=== PATIENT | male | born 1970 | race Caucasian/White ===

== ENCOUNTER 2021-01-26 17:41 | Inpatient (IN) | payer OTHER ==
[2021-01-26] MEDS ORDERED: MVI, Adult with Vitamin K 10 ML, Thiamine 100 MG, Folic Acid 1 MG, Magnesium Sulfate 3 ... IV SCH ×5 (18:30)
--- NOTE | 2021-01-26 19:06 | EDM.PDOC ---
ED HPI GENERAL MEDICAL PROBLEM - General Chief Complaint: General Stated Complaint: DEHYDRATED,WEAKENSS Time Seen by Provider: 01/26/21 18:25 Source of Information: Reports: Patient, Family History Limitations: Reports: No Limitations - History of Present Illness INITIAL COMMENTS - FREE TEXT/NARRATIVE: 50-year-old male with chronic alcoholism, was hospitalized 5 years ago with pancreatitis and significantly elevated liver enzymes and bilirubin and did have 4 years of sobriety but has been drinking daily now for months. He falls a lot, is bruised all over, and is unable to sleep and feels lightheaded and dizzy with walking. He has been nauseated and vomiting quite a bit and feels "dehydrated". No fever, denies shortness of breath, no diarrhea. Denies any pain. Really his chief complaint is insomnia. Onset: Gradual Duration: Chronic Associated Symptoms: Reports: Loss of Appetite, Malaise, Nausea/Vomiting, Syncope, Weakness. Denies: Confusion, Chest Pain, Cough, Fever/Chills, Headaches, Shortness of Breath - Related Data Allergies Allergy/AdvReac Type Severity Reaction Status Date / Time No Known Allergies Allergy Verified 01/26/21 18:00 Home Meds: Home Meds Insulin Aspart [NovoLOG] 0 unit SUBCUT ASDIRECTED pen 07/14/16 [Rx] Pantoprazole [ProTONIX IV] 40 mg IV Q12H vial 07/14/16 [Rx] Insulin Degludec [Tresiba Flextouch U-100] 0 unit SUBCUT QID 01/26/21 [History] Insulin Lispro [Humalog] 01/26/21 [History] atorvaSTATin [Lipitor] 1 tab PO BEDTIME 01/26/21 [History] Past Medical History Gastrointestinal History: Reports: GERD - Past Surgical History Other Musculoskeletal Surgeries/Procedures:: knee surgery Social & Family History - Tobacco Use Tobacco Use Status *Q: Never Tobacco User - Caffeine Use Caffeine Use: Reports: None - Alcohol Use Days Per Week of Alcohol Use: 7 Number of Drinks Per Day: 10 Total Drinks Per Week: 70 - Living Situation & Occupation Living situation: Reports: Occupation: Employed ED ROS GENERAL - Review of Systems Review Of Systems: See Below Constitutional: Reports: Malaise. Denies: Fever, Chills HEENT: Reports: No Symptoms Respiratory: Denies: Shortness of Breath, Cough Cardiovascular: Reports: Lightheadedness, Syncope. Denies: Chest Pain, Palpitations GI/Abdominal: Reports: Nausea. Denies: Abdominal Pain, Vomiting : Reports: No Symptoms Musculoskeletal: Reports: No Symptoms Skin: Reports: Bruising Neurological: Reports: Dizziness, Difficulty Walking, Weakness, Other (Symptoms are much worse with standing) Psychiatric: Reports: Anxiety, Depression, Other (Insomnia) ED EXAM, GENERAL - Physical Exam Exam: See Below Exam Limited By: No Limitations General Appearance: Alert, No Apparent Distress Eye Exam: Bilateral Eye: Normal Inspection (No obvious jaundice, hydration is good) Head: Other (He does have a healing abrasion on his right eyebrow, no other evidence of trauma) Neck: Supple, Non-Tender Respiratory/Chest: No Respiratory Distress, Lungs Clear Cardiovascular: Regular Rate, Rhythm. No: Tachycardia GI/Abdominal: Soft, Non-Tender Back Exam: Other (Some bruises are present on the right flank). No: CVA Tenderness (R), CVA Tenderness (L) Extremities: No Pedal Edema, Other (Abrasions and bruising on his arms, elbows and knees from falling) Neurological: Alert, Oriented. No: Disoriented, Slow to Respond, Unresponsive Psychiatric: Flat Affect Course - Vital Signs Last Recorded V/S: Last Vital Signs Temp 98.0 F 01/26/21 18:15 Pulse 89 01/26/21 21:25 Resp 16 01/26/21 18:15 BP 115/84 01/26/21 21:25 Pulse Ox 95 01/26/21 21:25 - Orders/Labs/Meds Orders: Active Orders 24 hr Category Date Time Status Patient Status [ADT] Routine ADT 01/26/21 22:47 Active Ambulate [RC] QID Care 01/26/21 22:47 Active CIWAA Assessment [RC] Q4H Care 01/26/21 22:47 Active Cardiac Monitoring [RC] .As Directed Care 01/26/21 22:47 Active Communication Order [RC] STAT Care 01/26/21 22:47 Active Diabetes Education [RC] Click to Edit Care 01/26/21 22:47 Active Height and Weight [RC] DAILY Care 01/26/21 22:47 Active Intake and Output [RC] QSHIFT Care 01/26/21 22:47 Active Notify Provider Vital Signs [RC] ASDIRECTED Care 01/26/21 22:47 Active Notify Provider [RC] PRN Care 01/26/21 22:47 Active Notify Provider [RC] PRN Care 01/26/21 22:47 Active Orthostatic Vital Signs [RC] Q6HR Care 01/26/21 22:59 Active Oxygen Therapy [RC] PRN Care 01/26/21 22:47 Active Pulse Oximetry [RC] CONTINUOUS Care 01/26/21 22:47 Active Up With Assistance [RC] ASDIRECTED Care 01/26/21 22:47 Active Up to Chair [RC] QID Care 01/26/21 22:47 Active VTE/DVT Education [RC] Per Unit Routine Care 01/26/21 22:47 Active Regular Diet [DIET] Diet 01/26/21 Dinner Active Brain w Cont [MR] Urgent Exams 01/27/21 08:00 Ordered Echo Comp wo Cont [US] Urgent Exams 01/27/21 08:00 Ordered Head wo Cont [CT] Stat Exams 01/26/21 20:54 Taken CBC WITH AUTO DIFF [HEME] AM Lab 01/27/21 05:11 Ordered COMPREHENSIVE METABOLIC PN,CMP [CHEM] AM Lab 01/27/21 05:11 Ordered GLUCOSE POC LAB TO COLLECT JPM [POC] QIDACANDBED Lab 01/27/21 07:30 Ordered GLUCOSE POC LAB TO COLLECT JPM [POC] QIDACANDBED Lab 01/27/21 11:30 Ordered GLUCOSE POC LAB TO COLLECT JPM [POC] QIDACANDBED Lab 01/27/21 16:30 Ordered GLUCOSE POC LAB TO COLLECT JPM [POC] QIDACANDBED Lab 01/27/21 21:00 Ordered GLUCOSE POC LAB TO COLLECT JPM [POC] QIDACANDBED Lab 01/28/21 07:30 Ordered GLUCOSE POC LAB TO COLLECT JPM [POC] QIDACANDBED Lab 01/28/21 11:30 Ordered GLUCOSE POC LAB TO COLLECT JPM [POC] QIDACANDBED Lab 01/28/21 16:30 Ordered GLUCOSE POC LAB TO COLLECT JPM [POC] QIDACANDBED Lab 01/28/21 21:00 Ordered GLUCOSE POC LAB TO COLLECT JPM [POC] QIDACANDBED Lab 01/29/21 07:30 Ordered GLUCOSE POC LAB TO COLLECT JPM [POC] QIDACANDBED Lab 01/29/21 11:30 Ordered GLUCOSE POC LAB TO COLLECT JPM [POC] QIDACANDBED Lab 01/29/21 16:30 Ordered GLUCOSE POC LAB TO COLLECT JPM [POC] QIDACANDBED Lab 01/29/21 21:00 Ordered GLUCOSE POC LAB TO COLLECT JPM [POC] QIDACANDBED Lab 01/30/21 07:30 Ordered GLUCOSE POC LAB TO COLLECT JPM [POC] QIDACANDBED Lab 01/30/21 11:30 Ordered GLUCOSE POC LAB TO COLLECT JPM [POC] QIDACANDBED Lab 01/30/21 16:30 Ordered GLUCOSE POC LAB TO COLLECT JPM [POC] QIDACANDBED Lab 01/30/21 21:00 Ordered GLUCOSE POC LAB TO COLLECT JPM [POC] QIDACANDBED Lab 01/31/21 07:30 Ordered GLUCOSE POC LAB TO COLLECT JPM [POC] QIDACANDBED Lab 01/31/21 11:30 Ordered GLUCOSE POC LAB TO COLLECT JPM [POC] QIDACANDBED Lab 01/31/21 16:30 Ordered GLUCOSE POC LAB TO COLLECT JPM [POC] QIDACANDBED Lab 01/31/21 21:00 Ordered MAGNESIUM [CHEM] AM Lab 01/27/21 05:11 Ordered TSH ULTRASENSITIVE [CHEM] Timed Lab 01/27/21 05:00 Ordered Acetaminophen [TylenoL] Med 01/26/21 22:47 Active 650 mg PO Q4H PRN Dextrose 50% in Water Med 01/26/21 22:47 Active 50 ml IV ONETIME PRN Dextrose [Glutose 15] Med 01/26/21 22:47 Active 15 gm PO ONETIME PRN Folic Acid Med 01/26/21 22:47 Active 1 mg PO DAILY Gabapentin [Neurontin] Med 01/30/21 22:00 Active 200 mg PO Q8H Gabapentin [Neurontin] Med 01/26/21 22:47 Active 400 mg PO Q8H Insulin Glarg,Human.Rec.Analog [LantUS Solostar] Med 01/26/21 23:28 Active 25 units SUBCUT BEDTIME Insulin Lispro [HumaLOG] Med 01/27/21 07:00 Active See Protocol SUBCUT QIDACANDBED LORazepam [Ativan] Med 01/26/21 22:47 Active See Protocol IV ASDIRECTED LORazepam [Ativan] Med 01/26/21 22:47 Active See Protocol PO ASDIRECTED Lidocaine 1% [Xylocaine-MPF 1%] Med 01/26/21 23:12 Active 2 ml INJECT Q2H PRN Ondansetron [Zofran] Med 01/26/21 22:47 Active 4 mg IV Q4H PRN Potassium Chloride [KCL in Water 20 MEQ/100 ML] 20 meq Med 01/26/21 23:30 Active Premix Bag 1 bag IV ONETIME Potassium Chloride [KCL in Water 20 MEQ/100 ML] 20 meq Med 01/27/21 01:30 Active Premix Bag 1 bag IV ONETIME Sodium Chloride 0.9% [Normal Saline] 1,000 ml Med 01/26/21 22:47 Active IV ASDIRECTED Thiamine [Vitamin B-1] Med 01/26/21 22:47 Active 100 mg PO DAILY atorvaSTATin [Lipitor] Med 01/27/21 21:00 Active 20 mg PO BEDTIME polyethylene glycoL 3350 [MiraLAX] Med 01/26/21 22:47 Active 17 gm PO DAILY PRN Anticoagulation Contraindications VTE [AST] Routine Oth 01/26/21 22:47 Ordered Sequential Compression Device [OM.PC] Per Unit Routine Oth 01/26/21 22:47 Ordered Resuscitation Status Routine Resus Stat 01/26/21 21:59 Ordered Medication Orders Acetaminophen (Acetaminophen 325 Mg Tab) 650 mg PO Q4H PRN PRN Reason: Pain (Mild 1-3)/fever Atorvastatin Calcium (Atorvastatin 20 Mg Tab) 20 mg PO BEDTIME [facility] Dextrose (Glucose Gel 15 Gm In 37.5 Gm Tube) 15 gm PO ONETIME PRN PRN Reason: Hypoglycemia Dextrose/Water (50% Dextrose In Water 50 Ml Syringe) 50 ml IV ONETIME PRN PRN Reason: Hypoglycemia Folic Acid (Folic Acid 1 Mg Tab) 1 mg PO DAILY [facility] Gabapentin (Gabapentin 400 Mg Cap) 400 mg PO Q8H [facility] Stop: 01/30/21 22:48 Gabapentin (Gabapentin 100 Mg Cap) 200 mg PO Q8H [facility] Stop: 02/03/21 22:01 Sodium Chloride (Normal Saline) 1,000 mls @ 125 mls/hr IV ASDIRECTED [facility] Last Admin: 01/26/21 23:18 Dose: 125 mls/hr Documented by: MAIN Potassium Chloride 20 meq/ (Premix) 100 mls @ 50 mls/hr IV ONETIME ONE Stop: 01/27/21 01:29 Potassium Chloride 20 meq/ (Premix) 100 mls @ 50 mls/hr IV ONETIME ONE Stop: 01/27/21 03:29 Insulin Glargine (Insulin Glargine,Human Rec. Analog 100 Units/Ml 3 Ml Pen) 25 units SUBCUT BEDTIME [facility] Insulin Human Lispro (Insulin Lispro 100 Unit/Ml 3 Ml Kwikpen) 0 unit SUBCUT QIDACANDBED [facility]; Protocol Lidocaine HCl (Lidocaine 1% 5 Ml Sdv) 2 ml INJECT Q2H PRN PRN Reason: add to potassium Lorazepam (Lorazepam 2 Mg/Ml Sdv) 0 mg IV ASDIRECTED [facility]; Protocol Lorazepam (Lorazepam 1 Mg Tab) 0 mg PO ASDIRECTED [facility]; Protocol Ondansetron HCl (Ondansetron 4 Mg/2 Ml Sdv) 4 mg IV Q4H PRN PRN Reason: Nausea/Vomiting Polyethylene Glycol (Polyethylene Glycol 3350 Powder 17 Gm Packet) 17 gm PO DAILY PRN PRN Reason: Constipation Thiamine HCl (Thiamine 100 Mg Tab) 100 mg PO DAILY [facility] Labs: Laboratory Tests 01/26/21 01/26/21 01/26/21 Range/Units 18:41 18:41 18:41 WBC 9.9 (4.5-11.0) K/uL RBC 4.33 (4.30-5.90) M/uL Hgb 13.5 D (12.0-15.0) g/dL Hct 35.1 L (40.0-54.0) % MCV 81 (80-98) fL MCH 31 (27-31) pg MCHC 39 H (32-36) % Plt Count 151 (150-400) K/uL Neut % (Auto) 69 H (36-66) % Lymph % (Auto) 10 L (24-44) % Turner % (Auto) 21 H (2-6) % Eos % (Auto) 0 L (2-4) % Baso % (Auto) 0 (0-1) % Puncture Site ABG pH (7.350-7.450) ABG pCO2 (35.0-42.0) mmHg ABG pO2 (75.0-100.0) mmHg ABG HCO3 (22.0-26.0) mmol/L ABG Total CO2 (23.0-27.0) mmol/L ABG O2 Saturation (95.0-98.0) % ABG O2 Content (15.0-23.0) %vol ABG Base Excess mm/L ABG Hemoglobin (13.5-18.0) g/dL ABG Oxyhemoglobin % ABG Carboxyhemoglobin (0.0-1.6) % ABG Methemoglobin % Cristian Test O2 Delivery Device Sodium 113 L* (140-148) mmol/L Potassium 2.9 L* (3.6-5.2) mmol/L Chloride 61 L D (100-108) mmol/L Carbon Dioxide 30 (21-32) mmol/L Anion Gap 24.9 H (5.0-14.0) mmol/L BUN 56 H D (7-18) mg/dL Creatinine 1.6 H D (0.8-1.3) mg/dL Est Cr Clr Drug Dosing 65.65 mL/min Estimated GFR (MDRD) 46 L (>60) Glucose 532 H* (74-106) mg/dL Calcium 8.4 L (8.5-10.1) mg/dL Magnesium 2.6 H (1.8-2.4) mg/dL Total Bilirubin 1.1 H D (0.2-1.0) mg/dL AST 35 D (15-37) U/L ALT 47 (12-78) U/L Alkaline Phosphatase 79 D (46-116) U/L Total Protein 7.2 (6.4-8.2) g/dL Albumin 3.7 (3.4-5.0) g/dL Globulin 3.5 (2.3-3.5) g/dL Albumin/Globulin Ratio 1.1 L (1.2-2.2) Lipase (73-393) U/L Ethyl Alcohol < 3 mg/dL 01/26/21 01/26/21 Range/Units 18:41 21:20 WBC (4.5-11.0) K/uL RBC (4.30-5.90) M/uL Hgb (12.0-15.0) g/dL Hct (40.0-54.0) % MCV (80-98) fL MCH (27-31) pg MCHC (32-36) % Plt Count (150-400) K/uL Neut % (Auto) (36-66) % Lymph % (Auto) (24-44) % Turner % (Auto) (2-6) % Eos % (Auto) (2-4) % Baso % (Auto) (0-1) % Puncture Site Rt radial ABG pH 7.511 H (7.350-7.450) ABG pCO2 38.9 (35.0-42.0) mmHg ABG pO2 77.0 (75.0-100.0) mmHg ABG HCO3 30.9 H (22.0-26.0) mmol/L ABG Total CO2 26.9 (23.0-27.0) mmol/L ABG O2 Saturation 96.1 (95.0-98.0) % ABG O2 Content 17.6 (15.0-23.0) %vol ABG Base Excess 7.6 mm/L ABG Hemoglobin 13.3 L (13.5-18.0) g/dL ABG Oxyhemoglobin 93.5 % ABG Carboxyhemoglobin 1.6 (0.0-1.6) % ABG Methemoglobin 1.1 % Cristian Test Passed O2 Delivery Device Room air Sodium (140-148) mmol/L Potassium (3.6-5.2) mmol/L Chloride (100-108) mmol/L Carbon Dioxide (21-32) mmol/L Anion Gap (5.0-14.0) mmol/L BUN (7-18) mg/dL Creatinine (0.8-1.3) mg/dL Est Cr Clr Drug Dosing mL/min Estimated GFR (MDRD) (>60) Glucose (74-106) mg/dL Calcium (8.5-10.1) mg/dL Magnesium (1.8-2.4) mg/dL Total Bilirubin (0.2-1.0) mg/dL AST (15-37) U/L ALT (12-78) U/L Alkaline Phosphatase (46-116) U/L Total Protein (6.4-8.2) g/dL Albumin (3.4-5.0) g/dL Globulin (2.3-3.5) g/dL Albumin/Globulin Ratio (1.2-2.2) Lipase 320 (73-393) U/L Ethyl Alcohol mg/dL Meds: Medications Generic Name Dose Route Start Last Admin Trade Name Freq PRN Reason Stop Dose Admin Acetaminophen 650 mg 01/26/21 22:47 Acetaminophen 325 Mg Tab PO Q4H PRN Pain (Mild 1-3)/fever Atorvastatin Calcium 20 mg 01/27/21 21:00 Atorvastatin 20 Mg Tab PO BEDTIME [facility] Dextrose 15 gm 01/26/21 22:47 Glucose Gel 15 Gm In 37.5 Gm Tube PO ONETIME PRN Hypoglycemia Dextrose/Water 50 ml 01/26/21 22:47 50% Dextrose In Water 50 Ml Syringe IV ONETIME PRN Hypoglycemia Folic Acid 1 mg 01/26/21 22:47 Folic Acid 1 Mg Tab PO DAILY [facility] Gabapentin 400 mg 01/26/21 22:47 Gabapentin 400 Mg Cap PO 01/30/21 22:48 Q8H [facility] Gabapentin 200 mg 01/30/21 22:00 Gabapentin 100 Mg Cap PO 02/03/21 22:01 Q8H [facility] Sodium Chloride 1,000 mls @ 125 mls/hr 01/26/21 22:47 01/26/21 23:18 Normal Saline IV 125 mls/hr ASDIRECTED [facility] Administration Potassium Chloride 20 meq/ 100 mls @ 50 mls/hr 01/26/21 23:30 Premix IV 01/27/21 01:29 ONETIME ONE Potassium Chloride 20 meq/ 100 mls @ 50 mls/hr 01/27/21 01:30 Premix IV 01/27/21 03:29 ONETIME ONE Insulin Glargine 25 units 01/26/21 23:28 Insulin Glargine,Human Rec. Analog 100 Units/Ml 3 Ml Pen SUBCUT BEDTIME [facility] Insulin Human Lispro 0 unit 01/27/21 07:00 Insulin Lispro 100 Unit/Ml 3 Ml Kwikpen SUBCUT QIDACANDBED [facility] Protocol Lidocaine HCl 2 ml 01/26/21 23:12 Lidocaine 1% 5 Ml Sdv INJECT Q2H PRN add to potassium Lorazepam 0 mg 01/26/21 22:47 Lorazepam 2 Mg/Ml Sdv IV ASDIRECTED [facility] Protocol Lorazepam 0 mg 01/26/21 22:47 Lorazepam 1 Mg Tab PO ASDIRECTED [facility] Protocol Ondansetron HCl 4 mg 01/26/21 22:47 Ondansetron 4 Mg/2 Ml Sdv IV Q4H PRN Nausea/Vomiting Polyethylene Glycol 17 gm 01/26/21 22:47 Polyethylene Glycol 3350 Powder 17 Gm Packet PO DAILY PRN Constipation Thiamine HCl 100 mg 01/26/21 22:47 Thiamine 100 Mg Tab PO DAILY [facility] Discontinued Medications Generic Name Dose Route Start Last Admin Trade Name Vickey PRN Reason Stop Dose Admin Multivitamins/Minerals 10 ml/ 1,017.2 mls @ 1,000 mls/hr 01/26/21 18:30 01/26/21 18:59 Thiamine HCl 100 mg/ Folic IV 1,000 mls/hr Acid 1 mg/ Magnesium Sulfate 3 ASDIRECTED [facility] Administration gm/ Sodium Chloride Sodium Chloride 1,000 mls @ 999 mls/hr 01/26/21 20:15 01/26/21 20:20 Normal Saline IV 999 mls/hr ASDIRECTED [facility] Administration Potassium Chloride/Sodium Chloride 1,000 mls @ 125 mls/hr 01/26/21 21:00 Normal Saline With 20 Meq Kcl IV ASDIRECTED [facility] Potassium Chloride 40 meq/ 100 mls @ 25 mls/hr 01/26/21 21:55 Premix IV 01/27/21 01:54 ONETIME ONE Insulin Human Regular 10 unit 01/26/21 19:33 01/26/21 20:03 Insulin Regular, Human 100 Units/Ml 3 Ml Vial IVPUSH 01/26/21 19:34 10 units ONETIME ONE Administration Pantoprazole Sodium 40 mg 01/26/21 22:47 Pantoprazole 40 Mg Vial IV Q12H [facility] Potassium Chloride 40 meq 01/26/21 21:55 Potassium Chloride 20 Meq Tab.Er PO 01/26/21 21:56 ONETIME ONE - Re-Assessments/Exams Free Text/Narrative Re-Assessment/Exam: 01/26/21 19:06 CBC, CMP, lipase magnesium and EtOH were obtained. We attempted to get orthostatics but the patient was very symptomatic when standing and felt like he was going to faint although his blood pressure was stable and it seemed to be somewhat exaggerated by patient. 1 L of banana bag was initiated. 01/26/21 19:41 Lipase is normal the glucose returned 532, sodium only 113. However corrected for the hyper glycemia his sodium level is 123. He was given 10 units of IV insulin, after his banana bag is completed we will consider rechecking his electrolytes. 01/26/21 23:39 At 1 point the patient ambulated into the bathroom and became syncopal, incontinent and needed to lay down. I consulted the hospitalist service to admit the patient for serious weakness, hyponatremia and hyperglycemia. Departure - Departure Time of Disposition: 23:02 Disposition: Admitted As Inpatient 68 Clinical Impression: Generalized weakness, Hyponatremia, Chronic alcohol abuse - Discharge Information Referrals: PCP,None [Primary Care Provider] - Forms: ED Department Discharge Care Plan Goals: Patient will be admitted for careful hydration to correct hypochloremia and hyponatremia, observe for possible alcohol withdrawal and assess further for cause of weakness and syncope. Sepsis Event Note (ED) - Evaluation Sepsis Screening Result: No Definite Risk - Focused Exam Vital Signs: Vital Signs Temp Pulse Resp BP Pulse Ox 01/26/21 21:25 89 115/84 95 01/26/21 20:53 87 146/80 H 97 01/26/21 18:15 98.0 F 90 16 137/89 97 01/26/21 17:56 98.0 F 90 16 137/89 97
[2021-01-26] MEDS ORDERED: Insulin Regular, Human 100 Units/ML 3 ML Vial IVPUSH ONE (19:33)
[2021-01-26] MEDS ORDERED: Sodium Chloride 0.9% 1,000 ML IV SCH (20:15)
[2021-01-26] MEDS ORDERED: NS + KCl 20mEq/L 1,000 ML IV SCH (21:00)
[2021-01-26] MEDS ORDERED: Potassium Chloride 20 MEQ Tab.ER PO ONE (21:55)
[2021-01-26] MEDS ORDERED: Potassium Chloride Riders 40 MEQ in Premix Bag 1 BAG IV ONE (21:55)
--- NOTE | 2021-01-26 22:06 | PCM.HP.2 ---
H&P History of Present Illness - General Date of Service: 01/26/21 Admit Problem/Dx: Admission Diagnosis/Problem Admission Diagnosis/Problem Alcohol withdrawal delirium Source of Information: Patient, Family, Old Records, Provider, RN Notes Reviewed History Limitations: Reports: No Limitations - History of Present Illness Initial Comments - Free Text/Narative: Mr. Mcghee is a 50-year-old gentleman who was admitted through the emergency department with weakness, lightheadedness, hyperglycemia, dehydration, hypokalemia, hyponatremia, and possible alcohol withdrawal. He admits that he has been drinking alcohol heavily for the past several months, but quit 3 to 4 days ago because he was not feeling well. For the past 7 to 10 days he has noted marked weakness and lightheadedness with standing. Symptoms have progressed and he is experienced 2 syncopal episodes over the past 2 days and experienced a fall in the emergency department because of weakness with no loss of consciousness. He reports that the weakness and lightheadedness is very profound and he can take only a few steps before he has to sit down. As an example he reports that it takes him 20 minutes to go up a flight of stairs. He denies symptoms of vertigo. He has not taken his insulin now for the past 3 days and his blood sugar was significantly elevated in the emergency department. His sodium level was found to be 113, when corrected for his hyperglycemia it is 122. Potassium level is low at 2.9 and there is an elevation in his anion gap. There is no evidence of significant acidosis on blood gases and his carbon dioxide level is actually elevated. Both of his syncopal episodes occurred while he was standing at the toilet and urinating. He denies a prior history of syncope, recent chest pain or pressure, tachycardia or bradycardia, or significant shortness of breath. - Related Data Allergies/Adverse Reactions: Allergies Allergy/AdvReac Type Severity Reaction Status Date / Time No Known Allergies Allergy Verified 01/26/21 18:00 Home Medications: Home Meds Insulin Aspart [NovoLOG] 0 unit SUBCUT ASDIRECTED pen 07/14/16 [Rx] Pantoprazole [ProTONIX IV] 40 mg IV Q12H vial 07/14/16 [Rx] Insulin Degludec [Tresiba Flextouch U-100] 0 unit SUBCUT QID 01/26/21 [History] Insulin Lispro [Humalog] 01/26/21 [History] atorvaSTATin [Lipitor] 1 tab PO BEDTIME 01/26/21 [History] Past Medical History Gastrointestinal History: Reports: GERD - Past Surgical History Other Musculoskeletal Surgeries/Procedures:: knee surgery Social & Family History - Tobacco Use Tobacco Use Status *Q: Never Tobacco User - Caffeine Use Caffeine Use: Reports: None - Alcohol Use Days Per Week of Alcohol Use: 7 Number of Drinks Per Day: 10 Total Drinks Per Week: 70 - Living Situation & Occupation Living situation: Reports: Occupation: Employed H&P Review of Systems - Review of Systems: Review Of Systems: See Below General: Reports: Weakness, Fatigue. Denies: Fever, Chills HEENT: Reports: No Symptoms Pulmonary: Reports: No Symptoms Cardiovascular: Reports: Lightheadedness, Syncope. Denies: Chest Pain, Palpitations, Dyspnea on Exertion, Orthopnea, PND, Edema Gastrointestinal: Reports: No Symptoms Genitourinary: Reports: No Symptoms Musculoskeletal: Reports: No Symptoms Skin: Reports: No Symptoms Psychiatric: Reports: No Symptoms Neurological: Reports: Confusion, Syncope, Difficulty Walking, Weakness (Generalized). Denies: Dizziness, Headache, Numbness, Paresthesia, Seizure, Tingling, Tremors, Trouble Speaking Hematologic/Lymphatic: Reports: No Symptoms Immunologic: Reports: No Symptoms Exam - Exam Exam: See Below - Vital Signs Vital Signs: Last Vital Signs Temp 98.0 F 01/26/21 18:15 Pulse 89 01/26/21 21:25 Resp 16 01/26/21 18:15 BP 115/84 01/26/21 21:25 Pulse Ox 95 01/26/21 21:25 Weight: 200 lb - Exam General: Alert, Oriented, Cooperative, Mild Distress HEENT: Conjunctiva Clear, Hearing Intact, Normal Nasal Septum, Posterior Pharynx Clear, Pupils Equal. No: Mucosa Moist & [place] Neck: Supple, Trachea Midline, +2 Carotid Pulse wo Bruit Lungs: Clear to Auscultation, Normal Respiratory Effort Cardiovascular: Regular Rate, Regular Rhythm, Normal S1, Normal S2. No: Systolic Murmur, Diastolic Murmur GI/Abdominal Exam: Soft, Non-Tender, No Organomegaly, No Distention Back Exam: Normal Inspection, Full Range of Motion Extremities: Non-Tender, No Pedal Edema Skin: Warm, Ecchymosis (Multiple), Other (Multiple skin abrasions) Neurological: Cranial Nerves Intact, Strength Equal Bilateral, Normal Speech, Normal Tone, Sensation Intact. No: Focal Deficit Neuro Extensive - Mental Status: Alert, Oriented x3, Normal Mood/Affect, Normal Cognition, Memory Intact, Other (Hallpike maneuvers are negative) - Patient Data Lab Results Last 24 hrs: Laboratory Results - last 24 hr 01/26/21 01/26/21 01/26/21 Range/Units 18:41 18:41 18:41 WBC 9.9 (4.5-11.0) K/uL RBC 4.33 (4.30-5.90) M/uL Hgb 13.5 D (12.0-15.0) g/dL Hct 35.1 L (40.0-54.0) % MCV 81 (80-98) fL MCH 31 (27-31) pg MCHC 39 H (32-36) % Plt Count 151 (150-400) K/uL Neut % (Auto) 69 H (36-66) % Lymph % (Auto) 10 L (24-44) % [place] % (Auto) 21 H (2-6) % Eos % (Auto) 0 L (2-4) % Baso % (Auto) 0 (0-1) % Puncture Site ABG pH (7.350-7.450) ABG pCO2 (35.0-42.0) mmHg ABG pO2 (75.0-100.0) mmHg ABG HCO3 (22.0-26.0) mmol/L ABG Total CO2 (23.0-27.0) mmol/L ABG O2 Saturation (95.0-98.0) % ABG O2 Content (15.0-23.0) %vol ABG Base Excess mm/L ABG Hemoglobin (13.5-18.0) g/dL ABG Oxyhemoglobin % ABG Carboxyhemoglobin (0.0-1.6) % ABG Methemoglobin % Cristian Test O2 Delivery Device Sodium 113 L* (140-148) mmol/L Potassium 2.9 L* (3.6-5.2) mmol/L Chloride 61 L D (100-108) mmol/L Carbon Dioxide 30 (21-32) mmol/L Anion Gap 24.9 H (5.0-14.0) mmol/L BUN 56 H D (7-18) mg/dL Creatinine 1.6 H D (0.8-1.3) mg/dL Est Cr Clr Drug Dosing 65.65 mL/min Estimated GFR (MDRD) 46 L (>60) Glucose 532 H* (74-106) mg/dL Calcium 8.4 L (8.5-10.1) mg/dL Magnesium 2.6 H (1.8-2.4) mg/dL Total Bilirubin 1.1 H D (0.2-1.0) mg/dL AST 35 D (15-37) U/L ALT 47 (12-78) U/L Alkaline Phosphatase 79 D (46-116) U/L Total Protein 7.2 (6.4-8.2) g/dL Albumin 3.7 (3.4-5.0) g/dL Globulin 3.5 (2.3-3.5) g/dL Albumin/Globulin Ratio 1.1 L (1.2-2.2) Lipase (73-393) U/L Ethyl Alcohol < 3 mg/dL 01/26/21 01/26/21 Range/Units 18:41 21:20 WBC (4.5-11.0) K/uL RBC (4.30-5.90) M/uL Hgb (12.0-15.0) g/dL Hct (40.0-54.0) % MCV (80-98) fL MCH (27-31) pg MCHC (32-36) % Plt Count (150-400) K/uL Neut % (Auto) (36-66) % Lymph % (Auto) (24-44) % [place] % (Auto) (2-6) % Eos % (Auto) (2-4) % Baso % (Auto) (0-1) % Puncture Site Rt radial ABG pH 7.511 H (7.350-7.450) ABG pCO2 38.9 (35.0-42.0) mmHg ABG pO2 77.0 (75.0-100.0) mmHg ABG HCO3 30.9 H (22.0-26.0) mmol/L ABG Total CO2 26.9 (23.0-27.0) mmol/L ABG O2 Saturation 96.1 (95.0-98.0) % ABG O2 Content 17.6 (15.0-23.0) %vol ABG Base Excess 7.6 mm/L ABG Hemoglobin 13.3 L (13.5-18.0) g/dL ABG Oxyhemoglobin 93.5 % ABG Carboxyhemoglobin 1.6 (0.0-1.6) % ABG Methemoglobin 1.1 % Cristian Test Passed O2 Delivery Device Room air Sodium (140-148) mmol/L Potassium (3.6-5.2) mmol/L Chloride (100-108) mmol/L Carbon Dioxide (21-32) mmol/L Anion Gap (5.0-14.0) mmol/L BUN (7-18) mg/dL Creatinine (0.8-1.3) mg/dL Est Cr Clr Drug Dosing mL/min Estimated GFR (MDRD) (>60) Glucose (74-106) mg/dL Calcium (8.5-10.1) mg/dL Magnesium (1.8-2.4) mg/dL Total Bilirubin (0.2-1.0) mg/dL AST (15-37) U/L ALT (12-78) U/L Alkaline Phosphatase (46-116) U/L Total Protein (6.4-8.2) g/dL Albumin (3.4-5.0) g/dL Globulin (2.3-3.5) g/dL Albumin/Globulin Ratio (1.2-2.2) Lipase 320 (73-393) U/L Ethyl Alcohol mg/dL Result Diagrams: 01/26/21 18:41 01/26/21 18:41 Sepsis Event Note - Evaluation Sepsis Screening Result: No Definite Risk - Focused Exam Vital Signs: Vital Signs Temp Pulse Resp BP Pulse Ox 01/26/21 21:25 89 115/84 95 01/26/21 20:53 87 146/80 H 97 01/26/21 18:15 98.0 F 90 16 137/89 97 01/26/21 17:56 98.0 F 90 16 137/89 97 *Q Meaningful Use (ADM) - VTE Risk Assess *Q Each Risk Factor Represents 1 Point: Age 41 - 59 years Total Score 1 Point Risk Factors: 1 Each Risk Factor Represents 2 Points: None Total Score 2 Point Risk Factors: 0 Each Risk Factor Represents 3 Points: None Total Score 3 Point Risk Factors: 0 Each Risk Factor Represents 5 Points: None Total Score 5 Point Risk Factors: 0 Venous Thromboembolism Risk Factor Score *Q: 1 Problem List Initiated/Reviewed/Updated: Yes Orders Last 24hrs: Active Orders 24 hr Category Date Time Status Patient Status Manage Transfer [TRANSFER] Routine ADT 01/26/21 21:55 Ordered Chest 2V [CR] Stat Exams 01/26/21 21:04 Ordered Head wo Cont [CT] Stat Exams 01/26/21 20:54 Ordered Lumbar Spine 2 or 3V [CR] Stat Exams 01/26/21 21:04 Ordered Thoracic Spine 3V [CR] Stat Exams 01/26/21 21:04 Ordered MVI, Adult with Vitamin K [Infuvite Adult] 10 ml Med 01/26/21 18:30 Active Thiamine [Vitamin B-1] 100 mg Folic Acid 1 mg Magnesium Sulfate [Magnesium Sulfate 50%] 3 gm Sodium Chloride 0.9% [Normal Saline] 1,000 ml IV ASDIRECTED NS + KCl 20mEq/L [Normal Saline with 20 mEq KCl] 1,000 Med 01/26/21 21:00 Active ml IV ASDIRECTED Potassium Chloride Riders [KCL in Water 40 MEQ/100 ML] Med 01/26/21 21:55 Active 40 meq Premix Bag 1 bag IV ONETIME Sodium Chloride 0.9% [Normal Saline] 1,000 ml Med 01/26/21 20:15 Active IV ASDIRECTED Resuscitation Status Routine Resus Stat 01/26/21 21:59 Ordered Medication Orders Multivitamins/Minerals 10 ml/Thiamine HCl 100 mg/ Folic Acid 1 mg/ Magnesium Sulfate 3 gm/ Sodium Chloride 1,017.2 mls @ 1,000 mls/hr IV ASDIRECTED NORMAN Last Admin: 01/26/21 18:59 Dose: 1,000 mls/hr Documented by: SAMANTHA Sodium Chloride (Normal Saline) 1,000 mls @ 999 mls/hr IV ASDIRECTED [facility] Last Admin: 01/26/21 20:20 Dose: 999 mls/hr Documented by: ANGELINA Potassium Chloride/Sodium Chloride (Normal Saline With 20 Meq Kcl) 1,000 mls @ 125 mls/hr IV ASDIRECTED [facility] Potassium Chloride 40 meq/ (Premix) 100 mls @ 25 mls/hr IV ONETIME ONE Stop: 01/27/21 01:54 Assessment/Plan Comment:: ASSESSMENT AND PLAN SYNCOPE-7 to 10-day history of marked weakness and lightheadedness, especially with standing. He has had 2 episodes of syncope both of which occurred with urination. Symptoms have been very severe and his activity has been markedly limited. No evidence of seizures or vertigo. -CT scan of the head without contrast, pending -MRI of the brain with contrast in a.m. -Echocardiogram in a.m. -Cardiac monitoring -Orthostatic vital signs HYPERGLYCEMIA-he reports a history of type 1 diabetes mellitus diagnosed approximately 4 years ago. Blood sugar markedly elevated in the emergency department, he has not taken his insulin for a period of 3 days. No evidence of significant ketoacidosis on evaluation. -IV fluids for hydration -Lantus 25 units nightly -Moderate dose sliding scale NovoLog -4 times daily glucometers ALCOHOL WITHDRAWAL-high risk for withdrawal, he stopped using alcohol 3 to 4 days ago. He recently has been consuming 800 to 900 mL of vodka daily. -Banana bag given in the emergency department -Oral folic acid and thiamine -Alcohol withdrawal protocol DEHYDRATION -IV fluids HYPONATREMIA-likely associated with dehydration. Sodium level 113 but when corrected for hyperglycemia is 122 -IV normal saline -Reassess sodium level in a.m. HYPOKALEMIA -IV and oral potassium replacement -Reassess potassium level in a.m. ANXIETY AND INSOMNIA-by history it sounds that both of these issues are significant driving factors and his alcohol use. When not using alcohol he reports almost daily panic attacks. He has been seeing a counselor and is planning on establishing with one of the primary care providers for further management of these issues. MAINTENANCE ISSUES -DVT prophylaxis; SCUDs -GI prophylaxis; not indicated -Webber catheter; not indicated -Nutrition; consistent carbohydrate diet -Nicotine dependence; not required CODE STATUS-FULL CODE ADMISSION STATUS-patient will be admitted to inpatient status, expect at least a 2 night hospital stay for evaluation and management of problems as outlined above. At the time of this admission I do not reasonably expected evaluation and management of this problem will require more than a 96 hour hospital stay. DISPOSITION-anticipate discharge to home after the hospital stay. - Mortality Measure Prognosis:: Good
[2021-01-26] MEDS ORDERED: LORazepam 1 MG Tab PO SCH (22:47)
[2021-01-26] MEDS ORDERED: Glucose Gel 15 GM in 37.5 GM Tube PO PRN (22:47)
[2021-01-26] MEDS ORDERED: Ondansetron 4 MG/2 ML SDV IV PRN (22:47)
[2021-01-26] MEDS ORDERED: Polyethylene Glycol 3350 Powder 17 GM Packet PO PRN (22:47)
[2021-01-26] MEDS ORDERED: LORazepam 2 MG/ML SDV IV SCH (22:47)
[2021-01-26] MEDS ORDERED: Pantoprazole 40 MG Vial IV SCH (22:47)
[2021-01-26] MEDS ORDERED: 50% Dextrose in Water 50 ML Syringe IV PRN (22:47)
[2021-01-26] MEDS ORDERED: Acetaminophen 325 MG Tab PO PRN (22:47)
[2021-01-26] MEDS: Sodium Chloride 0.9% 1,000 ML IV SCH (23:18)
[2021-01-26] MEDS ORDERED: Potassium Chloride 20 MEQ in Premix Bag 1 BAG IV ONE (23:30)
--- NOTE | 2021-01-26 23:37 | CRLCR ---
INDICATION: Multiple falls. Chronic ETOH. COMPARISON: None. FINDINGS/IMPRESSION: No acute fracture identified in the lumbar spine. No malalignment. Moderate degenerative disc disease at L5-S1. A few additional scattered endplate spurs in the mid lumbar spine, greatest at L2-3. Dictated by Patrick Cisneros MD @ 01/26/2021 11:35:00 PM Dictated by: Patrick Cisneros MD @ 01/26/2021 23:35:21 (Electronically Signed)
--- NOTE | 2021-01-26 23:37 | CRLCR ---
INDICATION: multi-falls in chronic ETOH - chest injury CHEST, PA AND LATERAL Upright PA and lateral radiographs of the chest were performed. Comparison: No previous studies are currently available for comparison. The lungs appear clear and there are no pleural effusions. Heart size and pulmonary vasculature appear normal. Visualized bones show no significant findings. IMPRESSION: No acute intrathoracic abnormality identified. JANETTE PELAYO MD [facility] Dictated by: Patrick Pelayo MD @ 01/26/2021 23:36:45 (Electronically Signed)
--- NOTE | 2021-01-26 23:39 | CRLCR ---
INDICATION: multi-falls in chronic ETOH - bruising hematoma THORACIC SPINE FINDINGS: No acute fractures are identified. No destructive lesions of bone are demonstrated. Osseous alignment is within normal limits and no subluxation is seen. Paravertebral soft tissues are unremarkable. IMPRESSION: No fracture, subluxation, or other acute finding identified. JANETTE PELAYO MD [facility] Dictated by: Patrick Pelayo MD @ 01/26/2021 23:37:18 (Electronically Signed)
--- NOTE | 2021-01-26 23:43 | CRLCT ---
INDICATION: multi-falls in chronic ETOH - left head injury CT HEAD WITHOUT CONTRAST TECHNIQUE: Multiple axial CT images were performed through the head without intravenous contrast administration. COMPARISON: No previous studies are currently available for comparison. FINDINGS: No acute intracranial hemorrhage is identified. No extra-axial collections are evident and there is no mass effect or midline shift. Ventricles are normal in size and configuration. Brain parenchyma appears normal with unremarkable morales-white differentiation. Osseous structures are within normal limits and no fractures are seen. Included portions of the paranasal sinuses and mastoid air cells are normally aerated. IMPRESSION: Normal non-contrast head CT. JANETTE PELAYO MD [facility] Dictated by: Patrick Pelayo MD @ 01/26/2021 23:40:59 (Electronically Signed)
[2021-01-27] MEDS: Thiamine 100 MG Tab PO SCH ×2 (00:26→11:45)
[2021-01-27] MEDS: Insulin Glargine,Human Rec. Analog 100 Units/ML 3 ML Pen SUBCUT SCH ×2 (00:26→21:28)
[2021-01-27] MEDS ORDERED: Potassium Chloride 20 MEQ Tab.ER ONE (00:26)
[2021-01-27] MEDS: Folic Acid 1 MG Tab PO SCH ×2 (00:26→11:45)
[2021-01-27] MEDS: Gabapentin 400 MG Cap PO SCH ×4 (00:26→21:27)
[2021-01-27] MEDS ORDERED: Potassium Chloride 20 MEQ in Premix Bag 1 BAG IV ONE (01:30)
[2021-01-27] MEDS ORDERED: Potassium Chloride 20 MEQ Tab.ER PO ONE ×2 (06:46→16:15)
[2021-01-27] MEDS ORDERED: Potassium Chloride 20 MEQ in Premix Bag 2 BAG IV ONE (06:46)
[2021-01-27] MEDS: Sodium Chloride 0.9% 1,000 ML IV SCH ×2 (07:19→17:09)
[2021-01-27] MEDS: Potassium Chloride 20 MEQ, Lidocaine 1% 2 ML in Sodium Chloride 0.9% 100 ML IV SCH ×2 (07:50→09:53)
[2021-01-27] MEDS: Insulin Lispro 100 Unit/ML 3 ML KwikPen SUBCUT SCH ×4 (08:01→21:27)
--- NOTE | 2021-01-27 09:09 | PCM.PN ---
- General Info Date of Service: 01/27/21 Subjective Update: The patient is very lethargic and sleepy this morning so I was not able to get any reliable history out of him. Since admission last night he is now in alcohol withdrawal and has received several doses of lorazepam. He has been sleeping since about 4 AM. Sodium and potassium have improved some since admission but remain low. No fevers. - Patient Data Vitals - Most Recent: Last Vital Signs Temp 36.8 C 01/27/21 08:00 Pulse 89 01/26/21 21:25 Resp 16 01/27/21 08:00 BP 95/63 01/27/21 08:00 Pulse Ox 96 01/27/21 08:00 Orthostatic Blood Pressure [ 78/45 Standing] Orthostatic Blood Pressure [ 130/72 Sitting] Orthostatic Blood Pressure [ 139/78 Supine] Weight - Most Recent: 86.183 kg I&O - Last 24 Hours: Intake & Output 01/26/21 01/27/21 01/27/21 22:59 06:59 14:59 Intake Total 2567 Output Total 360 Balance 2207 Lab Results Last 24 Hours: Laboratory Results - last 24 hr 01/26/21 01/26/21 01/26/21 Range/Units 18:41 18:41 18:41 WBC 9.9 (4.5-11.0) K/uL RBC 4.33 (4.30-5.90) M/uL Hgb 13.5 D (12.0-15.0) g/dL Hct 35.1 L (40.0-54.0) % MCV 81 (80-98) fL MCH 31 (27-31) pg MCHC 39 H (32-36) % Plt Count 151 (150-400) K/uL Neut % (Auto) 69 H (36-66) % Lymph % (Auto) 10 L (24-44) % [place] % (Auto) 21 H (2-6) % Eos % (Auto) 0 L (2-4) % Baso % (Auto) 0 (0-1) % Puncture Site ABG pH (7.350-7.450) ABG pCO2 (35.0-42.0) mmHg ABG pO2 (75.0-100.0) mmHg ABG HCO3 (22.0-26.0) mmol/L ABG Total CO2 (23.0-27.0) mmol/L ABG O2 Saturation (95.0-98.0) % ABG O2 Content (15.0-23.0) %vol ABG Base Excess mm/L ABG Hemoglobin (13.5-18.0) g/dL ABG Oxyhemoglobin % ABG Carboxyhemoglobin (0.0-1.6) % ABG Methemoglobin % Cristian Test O2 Delivery Device Sodium 113 L* (140-148) mmol/L Potassium 2.9 L* (3.6-5.2) mmol/L Chloride 61 L D (100-108) mmol/L Carbon Dioxide 30 (21-32) mmol/L Anion Gap 24.9 H (5.0-14.0) mmol/L BUN 56 H D (7-18) mg/dL Creatinine 1.6 H D (0.8-1.3) mg/dL Est Cr Clr Drug Dosing 65.65 mL/min Estimated GFR (MDRD) 46 L (>60) Glucose 532 H* (74-106) mg/dL POC Glucose (74-106) mg/dL Calcium 8.4 L (8.5-10.1) mg/dL Magnesium 2.6 H (1.8-2.4) mg/dL Total Bilirubin 1.1 H D (0.2-1.0) mg/dL AST 35 D (15-37) U/L ALT 47 (12-78) U/L Alkaline Phosphatase 79 D (46-116) U/L Total Protein 7.2 (6.4-8.2) g/dL Albumin 3.7 (3.4-5.0) g/dL Globulin 3.5 (2.3-3.5) g/dL Albumin/Globulin Ratio 1.1 L (1.2-2.2) Lipase (73-393) U/L TSH, Ultra Sensitive (0.358-3.740) uIU/mL Ethyl Alcohol < 3 mg/dL 01/26/21 01/26/21 01/27/21 Range/Units 18:41 21:20 00:15 WBC (4.5-11.0) K/uL RBC (4.30-5.90) M/uL Hgb (12.0-15.0) g/dL Hct (40.0-54.0) % MCV (80-98) fL MCH (27-31) pg MCHC (32-36) % Plt Count (150-400) K/uL Neut % (Auto) (36-66) % Lymph % (Auto) (24-44) % [place] % (Auto) (2-6) % Eos % (Auto) (2-4) % Baso % (Auto) (0-1) % Puncture Site Rt radial ABG pH 7.511 H (7.350-7.450) ABG pCO2 38.9 (35.0-42.0) mmHg ABG pO2 77.0 (75.0-100.0) mmHg ABG HCO3 30.9 H (22.0-26.0) mmol/L ABG Total CO2 26.9 (23.0-27.0) mmol/L ABG O2 Saturation 96.1 (95.0-98.0) % ABG O2 Content 17.6 (15.0-23.0) %vol ABG Base Excess 7.6 mm/L ABG Hemoglobin 13.3 L (13.5-18.0) g/dL ABG Oxyhemoglobin 93.5 % ABG Carboxyhemoglobin 1.6 (0.0-1.6) % ABG Methemoglobin 1.1 % Cristian Test Passed O2 Delivery Device Room air Sodium (140-148) mmol/L Potassium (3.6-5.2) mmol/L Chloride (100-108) mmol/L Carbon Dioxide (21-32) mmol/L Anion Gap (5.0-14.0) mmol/L BUN (7-18) mg/dL Creatinine (0.8-1.3) mg/dL Est Cr Clr Drug Dosing mL/min Estimated GFR (MDRD) (>60) Glucose (74-106) mg/dL POC Glucose 335 H (74-106) mg/dL Calcium (8.5-10.1) mg/dL Magnesium (1.8-2.4) mg/dL Total Bilirubin (0.2-1.0) mg/dL AST (15-37) U/L ALT (12-78) U/L Alkaline Phosphatase (46-116) U/L Total Protein (6.4-8.2) g/dL Albumin (3.4-5.0) g/dL Globulin (2.3-3.5) g/dL Albumin/Globulin Ratio (1.2-2.2) Lipase 320 (73-393) U/L TSH, Ultra Sensitive (0.358-3.740) uIU/mL Ethyl Alcohol mg/dL 01/27/21 01/27/21 01/27/21 Range/Units 06:00 06:00 06:00 WBC 8.7 (4.5-11.0) K/uL RBC 3.54 L (4.30-5.90) M/uL Hgb 11.2 L D (12.0-15.0) g/dL Hct 29.3 L (40.0-54.0) % MCV 83 (80-98) fL MCH 32 H (27-31) pg MCHC 38 H (32-36) % Plt Count 143 L (150-400) K/uL Neut % (Auto) 58 (36-66) % Lymph % (Auto) 21 L (24-44) % [place] % (Auto) 20 H (2-6) % Eos % (Auto) 1 L (2-4) % Baso % (Auto) 0 (0-1) % Puncture Site ABG pH (7.350-7.450) ABG pCO2 (35.0-42.0) mmHg ABG pO2 (75.0-100.0) mmHg ABG HCO3 (22.0-26.0) mmol/L ABG Total CO2 (23.0-27.0) mmol/L ABG O2 Saturation (95.0-98.0) % ABG O2 Content (15.0-23.0) %vol ABG Base Excess mm/L ABG Hemoglobin (13.5-18.0) g/dL ABG Oxyhemoglobin % ABG Carboxyhemoglobin (0.0-1.6) % ABG Methemoglobin % Cristian Test O2 Delivery Device Sodium 123 L (140-148) mmol/L Potassium 2.8 L* (3.6-5.2) mmol/L Chloride 83 L D (100-108) mmol/L Carbon Dioxide 30 (21-32) mmol/L Anion Gap 12.8 (5.0-14.0) mmol/L BUN 39 H (7-18) mg/dL Creatinine 1.2 (0.8-1.3) mg/dL Est Cr Clr Drug Dosing 82.63 mL/min Estimated GFR (MDRD) > 60 (>60) Glucose 265 H (74-106) mg/dL POC Glucose (74-106) mg/dL Calcium 7.4 L (8.5-10.1) mg/dL Magnesium 3.1 H (1.8-2.4) mg/dL Total Bilirubin 0.9 (0.2-1.0) mg/dL AST 27 (15-37) U/L ALT 38 (12-78) U/L Alkaline Phosphatase 60 (46-116) U/L Total Protein 5.8 L (6.4-8.2) g/dL Albumin 3.1 L (3.4-5.0) g/dL Globulin 2.7 (2.3-3.5) g/dL Albumin/Globulin Ratio 1.2 (1.2-2.2) Lipase (73-393) U/L TSH, Ultra Sensitive 0.651 (0.358-3.740) uIU/mL Ethyl Alcohol mg/dL 01/27/21 Range/Units 07:53 WBC (4.5-11.0) K/uL RBC (4.30-5.90) M/uL Hgb (12.0-15.0) g/dL Hct (40.0-54.0) % MCV (80-98) fL MCH (27-31) pg MCHC (32-36) % Plt Count (150-400) K/uL Neut % (Auto) (36-66) % Lymph % (Auto) (24-44) % [place] % (Auto) (2-6) % Eos % (Auto) (2-4) % Baso % (Auto) (0-1) % Puncture Site ABG pH (7.350-7.450) ABG pCO2 (35.0-42.0) mmHg ABG pO2 (75.0-100.0) mmHg ABG HCO3 (22.0-26.0) mmol/L ABG Total CO2 (23.0-27.0) mmol/L ABG O2 Saturation (95.0-98.0) % ABG O2 Content (15.0-23.0) %vol ABG Base Excess mm/L ABG Hemoglobin (13.5-18.0) g/dL ABG Oxyhemoglobin % ABG Carboxyhemoglobin (0.0-1.6) % ABG Methemoglobin % Cristian Test O2 Delivery Device Sodium (140-148) mmol/L Potassium (3.6-5.2) mmol/L Chloride (100-108) mmol/L Carbon Dioxide (21-32) mmol/L Anion Gap (5.0-14.0) mmol/L BUN (7-18) mg/dL Creatinine (0.8-1.3) mg/dL Est Cr Clr Drug Dosing mL/min Estimated GFR (MDRD) (>60) Glucose (74-106) mg/dL POC Glucose 245 H (74-106) mg/dL Calcium (8.5-10.1) mg/dL Magnesium (1.8-2.4) mg/dL Total Bilirubin (0.2-1.0) mg/dL AST (15-37) U/L ALT (12-78) U/L Alkaline Phosphatase (46-116) U/L Total Protein (6.4-8.2) g/dL Albumin (3.4-5.0) g/dL Globulin (2.3-3.5) g/dL Albumin/Globulin Ratio (1.2-2.2) Lipase (73-393) U/L TSH, Ultra Sensitive (0.358-3.740) uIU/mL Ethyl Alcohol mg/dL Med Orders - Current: Current Medications Acetaminophen (Acetaminophen 325 Mg Tab) 650 mg PO Q4H PRN PRN Reason: Pain (Mild 1-3)/fever Atorvastatin Calcium (Atorvastatin 20 Mg Tab) 20 mg PO BEDTIME [facility] Dextrose (Glucose Gel 15 Gm In 37.5 Gm Tube) 15 gm PO ONETIME PRN PRN Reason: Hypoglycemia Dextrose/Water (50% Dextrose In Water 50 Ml Syringe) 50 ml IV ONETIME PRN PRN Reason: Hypoglycemia Folic Acid (Folic Acid 1 Mg Tab) 1 mg PO DAILY [facility] Last Admin: 01/27/21 00:26 Dose: 1 mg Documented by: Gabapentin (Gabapentin 400 Mg Cap) 400 mg PO Q8H [facility] Stop: 01/30/21 22:48 Last Admin: 01/27/21 00:26 Dose: 400 mg Documented by: Gabapentin (Gabapentin 100 Mg Cap) 200 mg PO Q8H [facility] Stop: 02/03/21 22:01 Sodium Chloride (Normal Saline) 1,000 mls @ 125 mls/hr IV ASDIRECTED [facility] Last Admin: 01/27/21 07:19 Dose: 125 mls/hr Documented by: Potassium Chloride 20 meq/Lidocaine HCl 2 ml/ Sodium Chloride 112 mls @ 50 mls/hr IV Q2H [facility] Stop: 01/27/21 10:59 Last Admin: 01/27/21 07:50 Dose: 50 mls/hr Documented by: Insulin Glargine (Insulin Glargine,Human Rec. Analog 100 Units/Ml 3 Ml Pen) 25 units SUBCUT BEDTIME [facility] Last Admin: 01/27/21 00:26 Dose: 25 units Documented by: Insulin Human Lispro (Insulin Lispro 100 Unit/Ml 3 Ml Kwikpen) 0 unit SUBCUT QIDACANDBED [facility]; Protocol Last Admin: 01/27/21 08:01 Dose: 4 units Documented by: Lorazepam (Lorazepam 2 Mg/Ml Sdv) 0 mg IV ASDIRECTED [facility]; Protocol Last Admin: 01/27/21 04:33 Dose: 2 mg Documented by: Lorazepam (Lorazepam 1 Mg Tab) 0 mg PO ASDIRECTED [facility]; Protocol Last Admin: 01/27/21 02:28 Dose: 1 mg Documented by: Ondansetron HCl (Ondansetron 4 Mg/2 Ml Sdv) 4 mg IV Q4H PRN PRN Reason: Nausea/Vomiting Pantoprazole Sodium (Pantoprazole 40 Mg Tab.Cr) 40 mg PO BEDTIME [facility] Polyethylene Glycol (Polyethylene Glycol 3350 Powder 17 Gm Packet) 17 gm PO DAILY PRN PRN Reason: Constipation Thiamine HCl (Thiamine 100 Mg Tab) 100 mg PO DAILY [facility] Last Admin: 01/27/21 00:26 Dose: 100 mg Documented by: Discontinued Medications Multivitamins/Minerals 10 ml/Thiamine HCl 100 mg/ Folic Acid 1 mg/ Magnesium Sulfate 3 gm/ Sodium Chloride 1,017.2 mls @ 1,000 mls/hr IV ASDIRECTED [facility] Last Admin: 01/26/21 18:59 Dose: 1,000 mls/hr Documented by: Sodium Chloride (Normal Saline) 1,000 mls @ 999 mls/hr IV ASDIRECTED [facility] Last Admin: 01/26/21 20:20 Dose: 999 mls/hr Documented by: Potassium Chloride/Sodium Chloride (Normal Saline With 20 Meq Kcl) 1,000 mls @ 125 mls/hr IV ASDIRECTED [facility] Potassium Chloride 40 meq/ (Premix) 100 mls @ 25 mls/hr IV ONETIME ONE Stop: 01/27/21 01:54 Last Admin: 01/27/21 01:11 Dose: Not Given Documented by: Potassium Chloride 20 meq/ (Premix) 100 mls @ 50 mls/hr IV ONETIME ONE Stop: 01/27/21 01:29 Last Admin: 01/26/21 23:42 Dose: 50 mls/hr Documented by: Potassium Chloride 20 meq/ (Premix) 100 mls @ 50 mls/hr IV ONETIME ONE Stop: 01/27/21 03:29 Last Admin: 01/27/21 02:03 Dose: 50 mls/hr Documented by: Insulin Human Regular (Insulin Regular, Human 100 Units/Ml 3 Ml Vial) 10 unit IVPUSH ONETIME ONE Stop: 01/26/21 19:34 Last Admin: 01/26/21 20:03 Dose: 10 units Documented by: Lidocaine HCl (Lidocaine 1% 5 Ml Sdv) 2 ml INJECT Q2H PRN PRN Reason: add to potassium Last Admin: 01/27/21 02:03 Dose: 2 ml Documented by: Lidocaine HCl (Lidocaine 1% 5 Ml Sdv) 2 ml INJECT Q2H PRN PRN Reason: Other Pantoprazole Sodium (Pantoprazole 40 Mg Vial) 40 mg IV Q12H [facility] Last Admin: 01/27/21 01:11 Dose: Not Given Documented by: Potassium Chloride (Potassium Chloride 20 Meq Tab.Er) 40 meq PO ONETIME ONE Stop: 01/26/21 21:56 Last Admin: 01/27/21 00:27 Dose: 40 meq Documented by: Potassium Chloride (Potassium Chloride 20 Meq Tab.Er) Confirm Administered Dose 40 meq .ROUTE .STK-MED ONE Stop: 01/27/21 00:27 Last Admin: 01/27/21 01:03 Dose: Not Given Documented by: Potassium Chloride (Potassium Chloride 20 Meq Tab.Er) 40 meq PO ONETIME ONE Stop: 01/27/21 06:47 - Exam Quality Assessment: Supplemental Oxygen General: No Acute Distress, Obtunded. No: Alert Lungs: Clear to Auscultation, Normal Respiratory Effort Cardiovascular: Regular Rate, Regular Rhythm GI/Abdominal Exam: Soft, No Distention Extremities: No Pedal Edema. No: Increased Warmth Skin: Warm, Dry Psy/Mental Status: No: Alert, Agitated - Patient Data Lab Results Last 24 hrs: Laboratory Results - last 24 hr 01/26/21 01/26/21 01/26/21 Range/Units 18:41 18:41 18:41 WBC 9.9 (4.5-11.0) K/uL RBC 4.33 (4.30-5.90) M/uL Hgb 13.5 D (12.0-15.0) g/dL Hct 35.1 L (40.0-54.0) % MCV 81 (80-98) fL MCH 31 (27-31) pg MCHC 39 H (32-36) % Plt Count 151 (150-400) K/uL Neut % (Auto) 69 H (36-66) % Lymph % (Auto) 10 L (24-44) % [place] % (Auto) 21 H (2-6) % Eos % (Auto) 0 L (2-4) % Baso % (Auto) 0 (0-1) % Puncture Site ABG pH (7.350-7.450) ABG pCO2 (35.0-42.0) mmHg ABG pO2 (75.0-100.0) mmHg ABG HCO3 (22.0-26.0) mmol/L ABG Total CO2 (23.0-27.0) mmol/L ABG O2 Saturation (95.0-98.0) % ABG O2 Content (15.0-23.0) %vol ABG Base Excess mm/L ABG Hemoglobin (13.5-18.0) g/dL ABG Oxyhemoglobin % ABG Carboxyhemoglobin (0.0-1.6) % ABG Methemoglobin % Cristian Test O2 Delivery Device Sodium 113 L* (140-148) mmol/L Potassium 2.9 L* (3.6-5.2) mmol/L Chloride 61 L D (100-108) mmol/L Carbon Dioxide 30 (21-32) mmol/L Anion Gap 24.9 H (5.0-14.0) mmol/L BUN 56 H D (7-18) mg/dL Creatinine 1.6 H D (0.8-1.3) mg/dL Est Cr Clr Drug Dosing 65.65 mL/min Estimated GFR (MDRD) 46 L (>60) Glucose 532 H* (74-106) mg/dL POC Glucose (74-106) mg/dL Calcium 8.4 L (8.5-10.1) mg/dL Magnesium 2.6 H (1.8-2.4) mg/dL Total Bilirubin 1.1 H D (0.2-1.0) mg/dL AST 35 D (15-37) U/L ALT 47 (12-78) U/L Alkaline Phosphatase 79 D (46-116) U/L Total Protein 7.2 (6.4-8.2) g/dL Albumin 3.7 (3.4-5.0) g/dL Globulin 3.5 (2.3-3.5) g/dL Albumin/Globulin Ratio 1.1 L (1.2-2.2) Lipase (73-393) U/L TSH, Ultra Sensitive (0.358-3.740) uIU/mL Ethyl Alcohol < 3 mg/dL 01/26/21 01/26/21 01/27/21 Range/Units 18:41 21:20 00:15 WBC (4.5-11.0) K/uL RBC (4.30-5.90) M/uL Hgb (12.0-15.0) g/dL Hct (40.0-54.0) % MCV (80-98) fL MCH (27-31) pg MCHC (32-36) % Plt Count (150-400) K/uL Neut % (Auto) (36-66) % Lymph % (Auto) (24-44) % [place] % (Auto) (2-6) % Eos % (Auto) (2-4) % Baso % (Auto) (0-1) % Puncture Site Rt radial ABG pH 7.511 H (7.350-7.450) ABG pCO2 38.9 (35.0-42.0) mmHg ABG pO2 77.0 (75.0-100.0) mmHg ABG HCO3 30.9 H (22.0-26.0) mmol/L ABG Total CO2 26.9 (23.0-27.0) mmol/L ABG O2 Saturation 96.1 (95.0-98.0) % ABG O2 Content 17.6 (15.0-23.0) %vol ABG Base Excess 7.6 mm/L ABG Hemoglobin 13.3 L (13.5-18.0) g/dL ABG Oxyhemoglobin 93.5 % ABG Carboxyhemoglobin 1.6 (0.0-1.6) % ABG Methemoglobin 1.1 % Cristian Test Passed O2 Delivery Device Room air Sodium (140-148) mmol/L Potassium (3.6-5.2) mmol/L Chloride (100-108) mmol/L Carbon Dioxide (21-32) mmol/L Anion Gap (5.0-14.0) mmol/L BUN (7-18) mg/dL Creatinine (0.8-1.3) mg/dL Est Cr Clr Drug Dosing mL/min Estimated GFR (MDRD) (>60) Glucose (74-106) mg/dL POC Glucose 335 H (74-106) mg/dL Calcium (8.5-10.1) mg/dL Magnesium (1.8-2.4) mg/dL Total Bilirubin (0.2-1.0) mg/dL AST (15-37) U/L ALT (12-78) U/L Alkaline Phosphatase (46-116) U/L Total Protein (6.4-8.2) g/dL Albumin (3.4-5.0) g/dL Globulin (2.3-3.5) g/dL Albumin/Globulin Ratio (1.2-2.2) Lipase 320 (73-393) U/L TSH, Ultra Sensitive (0.358-3.740) uIU/mL Ethyl Alcohol mg/dL 01/27/21 01/27/21 01/27/21 Range/Units 06:00 06:00 06:00 WBC 8.7 (4.5-11.0) K/uL RBC 3.54 L (4.30-5.90) M/uL Hgb 11.2 L D (12.0-15.0) g/dL Hct 29.3 L (40.0-54.0) % MCV 83 (80-98) fL MCH 32 H (27-31) pg MCHC 38 H (32-36) % Plt Count 143 L (150-400) K/uL Neut % (Auto) 58 (36-66) % Lymph % (Auto) 21 L (24-44) % [place] % (Auto) 20 H (2-6) % Eos % (Auto) 1 L (2-4) % Baso % (Auto) 0 (0-1) % Puncture Site ABG pH (7.350-7.450) ABG pCO2 (35.0-42.0) mmHg ABG pO2 (75.0-100.0) mmHg ABG HCO3 (22.0-26.0) mmol/L ABG Total CO2 (23.0-27.0) mmol/L ABG O2 Saturation (95.0-98.0) % ABG O2 Content (15.0-23.0) %vol ABG Base Excess mm/L ABG Hemoglobin (13.5-18.0) g/dL ABG Oxyhemoglobin % ABG Carboxyhemoglobin (0.0-1.6) % ABG Methemoglobin % Cristian Test O2 Delivery Device Sodium 123 L (140-148) mmol/L Potassium 2.8 L* (3.6-5.2) mmol/L Chloride 83 L D (100-108) mmol/L Carbon Dioxide 30 (21-32) mmol/L Anion Gap 12.8 (5.0-14.0) mmol/L BUN 39 H (7-18) mg/dL Creatinine 1.2 (0.8-1.3) mg/dL Est Cr Clr Drug Dosing 82.63 mL/min Estimated GFR (MDRD) > 60 (>60) Glucose 265 H (74-106) mg/dL POC Glucose (74-106) mg/dL Calcium 7.4 L (8.5-10.1) mg/dL Magnesium 3.1 H (1.8-2.4) mg/dL Total Bilirubin 0.9 (0.2-1.0) mg/dL AST 27 (15-37) U/L ALT 38 (12-78) U/L Alkaline Phosphatase 60 (46-116) U/L Total Protein 5.8 L (6.4-8.2) g/dL Albumin 3.1 L (3.4-5.0) g/dL Globulin 2.7 (2.3-3.5) g/dL Albumin/Globulin Ratio 1.2 (1.2-2.2) Lipase (73-393) U/L TSH, Ultra Sensitive 0.651 (0.358-3.740) uIU/mL Ethyl Alcohol mg/dL 01/27/21 Range/Units 07:53 WBC (4.5-11.0) K/uL RBC (4.30-5.90) M/uL Hgb (12.0-15.0) g/dL Hct (40.0-54.0) % MCV (80-98) fL MCH (27-31) pg MCHC (32-36) % Plt Count (150-400) K/uL Neut % (Auto) (36-66) % Lymph % (Auto) (24-44) % [place] % (Auto) (2-6) % Eos % (Auto) (2-4) % Baso % (Auto) (0-1) % Puncture Site ABG pH (7.350-7.450) ABG pCO2 (35.0-42.0) mmHg ABG pO2 (75.0-100.0) mmHg ABG HCO3 (22.0-26.0) mmol/L ABG Total CO2 (23.0-27.0) mmol/L ABG O2 Saturation (95.0-98.0) % ABG O2 Content (15.0-23.0) %vol ABG Base Excess mm/L ABG Hemoglobin (13.5-18.0) g/dL ABG Oxyhemoglobin % ABG Carboxyhemoglobin (0.0-1.6) % ABG Methemoglobin % Cristian Test O2 Delivery Device Sodium (140-148) mmol/L Potassium (3.6-5.2) mmol/L Chloride (100-108) mmol/L Carbon Dioxide (21-32) mmol/L Anion Gap (5.0-14.0) mmol/L BUN (7-18) mg/dL Creatinine (0.8-1.3) mg/dL Est Cr Clr Drug Dosing mL/min Estimated GFR (MDRD) (>60) Glucose (74-106) mg/dL POC Glucose 245 H (74-106) mg/dL Calcium (8.5-10.1) mg/dL Magnesium (1.8-2.4) mg/dL Total Bilirubin (0.2-1.0) mg/dL AST (15-37) U/L ALT (12-78) U/L Alkaline Phosphatase (46-116) U/L Total Protein (6.4-8.2) g/dL Albumin (3.4-5.0) g/dL Globulin (2.3-3.5) g/dL Albumin/Globulin Ratio (1.2-2.2) Lipase (73-393) U/L TSH, Ultra Sensitive (0.358-3.740) uIU/mL Ethyl Alcohol mg/dL Result Diagrams: 01/27/21 06:00 01/27/21 15:24 Sepsis Event Note - Evaluation Sepsis Screening Result: No Definite Risk - Focused Exam Vital Signs: Vital Signs Temp Pulse Resp BP Pulse Ox 01/27/21 08:00 36.8 C 16 95/63 96 01/27/21 06:00 11 L 106/63 98 01/27/21 05:00 13 106/68 96 01/27/21 04:00 36.7 C 15 110/67 96 01/27/21 03:00 19 110/67 91 L 01/27/21 02:00 14 107/61 91 L 01/27/21 01:00 36.7 C 17 124/70 99 01/27/21 00:00 17 125/58 L 99 01/26/21 23:13 36.7 C 21 H 137/78 98 01/26/21 21:25 89 115/84 95 - Problem List Review Problem List Initiated/Reviewed/Updated: Yes - My Orders Last 24 Hours: My Active Orders 01/27/21 15:00 POTASSIUM,K [CHEM] Timed 01/28/21 05:00 BASIC METABOLIC PANEL,BMP [CHEM] Timed CBC W/O DIFF,HEMOGRAM [HEME] Timed (1) - Plan Plan:: ASSESSMENT AND PLAN - SYNCOPE-MRI of the brain unremarkable. Echo unremarkable. Probably related to intravascular volume depletion and severe electrolyte abnormalities. -Cardiac monitoring -Orthostatic vital signs -Physical therapy when he is done with alcohol withdrawal HYPERGLYCEMIA-improving with supplemental insulin. -Continue IV fluids -Lantus 25 units nightly -Moderate dose sliding scale NovoLog -4 times daily glucometers ALCOHOL WITHDRAWAL-patient is in alcohol withdrawal and is experiencing hallucinations and significant confusion. He has a hypoactive delirium. -Banana bag given in the emergency department -Oral folic acid and thiamine -Alcohol withdrawal protocol DEHYDRATION-improving with hydration. -IV fluids HYPONATREMIA-likely associated with dehydration. Sodium level improving. -Continue IV fluids -Reassess sodium level in a.m. HYPOKALEMIA-significant hypokalemia has been improving with supplementation. -IV and oral potassium replacement completed this a.m. -Reassess potassium level this afternoon and in a.m. ANXIETY AND INSOMNIA-by history it sounds that both of these issues are significant driving factors and his alcohol use. When not using alcohol he reports almost daily panic attacks. He has been seeing a counselor and is planning on establishing with one of the primary care providers for further management of these issues. MAINTENANCE ISSUES -DVT prophylaxis; SCUDs -GI prophylaxis; not indicated -Webber catheter; not indicated -Nutrition; consistent carbohydrate diet DISPOSITION-anticipate discharge to home after the hospital stay. Herb Fuentes MD
--- NOTE | 2021-01-27 12:51 | CRLMR ---
INDICATION: Weakness, falls, alcoholic. TECHNIQUE: Brain MRI without contrast. The following sequences were obtained: Sagittal T1 weighted sequence. DWI and ADC mapping sequences. Axial FLAIR and ABBY T2 weighted sequences. Axial GRE T2* sequence. COMPARISON: Head CT from 01/26/2021. FINDINGS: No evidence of acute ischemia. Focus of susceptibility right hippocampal formation compatible with a microbleed or small cavernoma. Mild generalized parenchymal loss. No mass effect or herniation. No hydrocephalus or extra-axial collections. The pituitary gland, parasellar structures and optic chiasm are normal. Posterior fossa is normal. All the major intracranial vascular structures demonstrate normal flow-related signal. The orbital contents are normal. No calvarial or skull base marrow signal abnormality. No obstructive sinus disease. No extracranial soft tissue findings. IMPRESSION: 1. No acute infarction or other acute intracranial pathology. 2. Mild generalized parenchymal volume loss. 3. 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 Dictated by Esa Lynn MD @ 01/27/2021 12:48:[address] Esa Lynn @ Jan 27 2021 12:48PM
[2021-01-27] MEDS: Pantoprazole 40 MG Tab.CR PO SCH (21:27)
[2021-01-27] MEDS: atorvaSTATin 20 MG Tab PO SCH (21:27)
[2021-01-28] MEDS: Sodium Chloride 0.9% 1,000 ML IV SCH ×2 (00:47→08:27)
[2021-01-28] MEDS: Gabapentin 400 MG Cap PO SCH ×3 (05:37→22:54)
[2021-01-28] MEDS ORDERED: Potassium Chloride 20 MEQ Tab.ER PO ONE (08:00)
[2021-01-28] MEDS ORDERED: 50% Dextrose in Water 50 ML Syringe IVPUSH PRN (08:47)
[2021-01-28] MEDS ORDERED: Glucagon,Human Recombinant 1 MG Vial IM PRN (08:47)
[2021-01-28] MEDS: Thiamine 100 MG Tab PO SCH (08:48)
[2021-01-28] MEDS: Folic Acid 1 MG Tab PO SCH (08:48)
[2021-01-28] MEDS: Insulin Lispro 100 Unit/ML 3 ML KwikPen SUBCUT SCH ×4 (08:50→22:47)
[2021-01-28] MEDS ORDERED: Insulin Lispro 100 Unit/ML 3 ML KwikPen SUBCUT ONE (09:00)
--- NOTE | 2021-01-28 09:46 | PCM.PN ---
- General Info Date of Service: 01/28/21 Subjective Update: There were no acute events overnight. Patient did not require any lorazepam overnight. He is not hallucinating. He is alert, oriented and interactive. He feels weak and feels tired but otherwise feels okay. No complaints of shortness of breath, abdominal pain or nausea. Sodium level has improved further but remains low. Potassium remains low but has been improving. Vital signs have been stable. He has not been out of bed yet. Functional Status: Reports: Pain Controlled, Tolerating Diet - Review of Systems General: Reports: Weakness HEENT: Denies: Headaches Gastrointestinal: Denies: Abdominal Pain, Nausea - Patient Data Vitals - Most Recent: Last Vital Signs Temp 36.8 C 01/28/21 08:00 Pulse 85 01/28/21 08:00 Resp 10 L 01/28/21 08:00 BP 106/63 01/28/21 08:00 Pulse Ox 96 01/28/21 08:00 Orthostatic Blood Pressure [ 78/45 Standing] Orthostatic Blood Pressure [ 130/72 Sitting] Orthostatic Blood Pressure [ 139/78 Supine] Weight - Most Recent: 86.183 kg I&O - Last 24 Hours: Intake & Output 01/27/21 01/28/21 01/28/21 22:59 06:59 14:59 Intake Total 2163 2546 Output Total 650 600 600 Balance 1513 1946 -600 Lab Results Last 24 Hours: Laboratory Results - last 24 hr 01/27/21 01/27/21 01/27/21 Range/Units 10:49 15:24 17:12 WBC (4.5-11.0) K/uL RBC (4.30-5.90) M/uL Hgb (12.0-15.0) g/dL Hct (40.0-54.0) % MCV (80-98) fL MCH (27-31) pg MCHC (32-36) % Plt Count (150-400) K/uL Sodium (140-148) mmol/L Potassium 3.3 L (3.6-5.2) mmol/L Chloride (100-108) mmol/L Carbon Dioxide (21-32) mmol/L Anion Gap (5.0-14.0) mmol/L BUN (7-18) mg/dL Creatinine (0.8-1.3) mg/dL Est Cr Clr Drug Dosing mL/min Estimated GFR (MDRD) (>60) Glucose (74-106) mg/dL POC Glucose 246 H 204 H (74-106) mg/dL Calcium (8.5-10.1) mg/dL 01/27/21 01/28/21 01/28/21 Range/Units 21:26 05:30 05:30 WBC 7.1 (4.5-11.0) K/uL RBC 3.24 L (4.30-5.90) M/uL Hgb 10.1 L (12.0-15.0) g/dL Hct 27.7 L (40.0-54.0) % MCV 86 (80-98) fL MCH 31 (27-31) pg MCHC 37 H (32-36) % Plt Count 138 L (150-400) K/uL Sodium 131 L (140-148) mmol/L Potassium 3.3 L (3.6-5.2) mmol/L Chloride 95 L (100-108) mmol/L Carbon Dioxide 28 (21-32) mmol/L Anion Gap 11.3 (5.0-14.0) mmol/L BUN 27 H (7-18) mg/dL Creatinine 1.0 (0.8-1.3) mg/dL Est Cr Clr Drug Dosing 99.29 mL/min Estimated GFR (MDRD) > 60 (>60) Glucose 328 H (74-106) mg/dL POC Glucose 164 H (74-106) mg/dL Calcium 7.4 L (8.5-10.1) mg/dL 01/28/21 Range/Units 08:42 WBC (4.5-11.0) K/uL RBC (4.30-5.90) M/uL Hgb (12.0-15.0) g/dL Hct (40.0-54.0) % MCV (80-98) fL MCH (27-31) pg MCHC (32-36) % Plt Count (150-400) K/uL Sodium (140-148) mmol/L Potassium (3.6-5.2) mmol/L Chloride (100-108) mmol/L Carbon Dioxide (21-32) mmol/L Anion Gap (5.0-14.0) mmol/L BUN (7-18) mg/dL Creatinine (0.8-1.3) mg/dL Est Cr Clr Drug Dosing mL/min Estimated GFR (MDRD) (>60) Glucose (74-106) mg/dL POC Glucose 423 H* (74-106) mg/dL Calcium (8.5-10.1) mg/dL Med Orders - Current: Current Medications Acetaminophen (Acetaminophen 325 Mg Tab) 650 mg PO Q4H PRN PRN Reason: Pain (Mild 1-3)/fever Atorvastatin Calcium (Atorvastatin 20 Mg Tab) 20 mg PO BEDTIME [facility] Last Admin: 01/27/21 21:27 Dose: 20 mg Documented by: Dextrose (Glucose Gel 15 Gm In 37.5 Gm Tube) 15 gm PO ONETIME PRN PRN Reason: Hypoglycemia Dextrose/Water (50% Dextrose In Water 50 Ml Syringe) 50 ml IV ONETIME PRN PRN Reason: Hypoglycemia Dextrose/Water (50% Dextrose In Water 50 Ml Syringe) 50 ml IVPUSH ASDIRECTED PRN PRN Reason: Hypoglycemia Folic Acid (Folic Acid 1 Mg Tab) 1 mg PO DAILY [facility] Last Admin: 01/28/21 08:48 Dose: 1 mg Documented by: Gabapentin (Gabapentin 100 Mg Cap) 200 mg PO Q8H [facility] Stop: 02/03/21 22:01 Gabapentin (Gabapentin 400 Mg Cap) 400 mg PO Q8H [facility] Last Admin: 01/28/21 05:37 Dose: 400 mg Documented by: Glucagon (Glucagon,Human Recombinant 1 Mg Vial) 1 mg IM ASDIRECTED PRN PRN Reason: Hypoglycemia Potassium Chloride/Sodium Chloride (Normal Saline With 20 Meq Kcl) 1,000 mls @ 75 mls/hr IV ASDIRECTED [facility] Insulin Glargine (Insulin Glargine,Human Rec. Analog 100 Units/Ml 3 Ml Pen) 25 units SUBCUT BEDTIME [facility] Last Admin: 01/27/21 21:28 Dose: 25 units Documented by: Insulin Human Lispro (Insulin Lispro 100 Unit/Ml 3 Ml Kwikpen) 0 unit SUBCUT QIDACANDBED [facility]; Protocol Last Admin: 01/28/21 08:50 Dose: Not Given Documented by: Ondansetron HCl (Ondansetron 4 Mg/2 Ml Sdv) 4 mg IV Q4H PRN PRN Reason: Nausea/Vomiting Pantoprazole Sodium (Pantoprazole 40 Mg Tab.Cr) 40 mg PO BEDTIME [facility] Last Admin: 01/27/21 21:27 Dose: 40 mg Documented by: Polyethylene Glycol (Polyethylene Glycol 3350 Powder 17 Gm Packet) 17 gm PO D AILY PRN PRN Reason: Constipation Thiamine HCl (Thiamine 100 Mg Tab) 100 mg PO DAILY [facility] Last Admin: 01/28/21 08:48 Dose: 100 mg Documented by: Discontinued Medications Gabapentin (Gabapentin 400 Mg Cap) 400 mg PO Q8H [facility] Stop: 01/30/21 22:48 Last Admin: 01/27/21 07:00 Dose: Not Given Documented by: Multivitamins/Minerals 10 ml/Thiamine HCl 100 mg/ Folic Acid 1 mg/ Magnesium Sulfate 3 gm/ Sodium Chloride 1,017.2 mls @ 1,000 mls/hr IV ASDIRECTED [facility] Last Admin: 01/26/21 18:59 Dose: 1,000 mls/hr Documented by: Sodium Chloride (Normal Saline) 1,000 mls @ 999 mls/hr IV ASDIRECTED [facility] Last Admin: 01/26/21 20:20 Dose: 999 mls/hr Documented by: Potassium Chloride/Sodium Chloride (Normal Saline With 20 Meq Kcl) 1,000 mls @ 125 mls/hr IV ASDIRECTED [facility] Potassium Chloride 40 meq/ (Premix) 100 mls @ 25 mls/hr IV ONETIME ONE Stop: 01/27/21 01:54 Last Admin: 01/27/21 01:11 Dose: Not Given Documented by: Sodium Chloride (Normal Saline) 1,000 mls @ 125 mls/hr IV ASDIRECTED [facility] Last Admin: 01/28/21 08:27 Dose: 125 mls/hr Documented by: Potassium Chloride 20 meq/ (Premix) 100 mls @ 50 mls/hr IV ONETIME ONE Stop: 01/27/21 01:29 Last Admin: 01/26/21 23:42 Dose: 50 mls/hr Documented by: Potassium Chloride 20 meq/ (Premix) 100 mls @ 50 mls/hr IV ONETIME ONE Stop: 01/27/21 03:29 Last Admin: 01/27/21 02:03 Dose: 50 mls/hr Documented by: Potassium Chloride 20 meq/Lidocaine HCl 2 ml/ Sodium Chloride 112 mls @ 50 mls/hr IV Q2H [facility] Stop: 01/27/21 10:59 Last Admin: 01/27/21 09:53 Dose: 50 mls/hr Documented by: Insulin Human Lispro (Insulin Lispro 100 Unit/Ml 3 Ml Kwikpen) 12 unit SUBCUT ONETIME ONE Stop: 01/28/21 09:01 Last Admin: 01/28/21 08:54 Dose: 12 unit Documented by: Insulin Human Regular (Insulin Regular, Human 100 Units/Ml 3 Ml Vial) 10 unit IVPUSH ONETIME ONE Stop: 01/26/21 19:34 Last Admin: 01/26/21 20:03 Dose: 10 units Documented by: Lidocaine HCl (Lidocaine 1% 5 Ml Sdv) 2 ml INJECT Q2H PRN PRN Reason: add to potassium Last Admin: 01/27/21 02:03 Dose: 2 ml Documented by: Lidocaine HCl (Lidocaine 1% 5 Ml Sdv) 2 ml INJECT Q2H PRN PRN Reason: Other Lorazepam (Lorazepam 2 Mg/Ml Sdv) 0 mg IV ASDIRECTED [facility]; Protocol Last Admin: 01/27/21 04:33 Dose: 2 mg Documented by: Lorazepam (Lorazepam 1 Mg Tab) 0 mg PO ASDIRECTED [facility]; Protocol Last Admin: 01/27/21 02:28 Dose: 1 mg Documented by: Pantoprazole Sodium (Pantoprazole 40 Mg Vial) 40 mg IV Q12H [facility] Last Admin: 01/27/21 01:11 Dose: Not Given Documented by: Potassium Chloride (Potassium Chloride 20 Meq Tab.Er) 40 meq PO ONETIME ONE Stop: 01/26/21 21:56 Last Admin: 01/27/21 00:27 Dose: 40 meq Documented by: Potassium Chloride (Potassium Chloride 20 Meq Tab.Er) Confirm Administered Dose 40 meq .ROUTE .STK-MED ONE Stop: 01/27/21 00:27 Last Admin: 01/27/21 01:03 Dose: Not Given Documented by: Potassium Chloride (Potassium Chloride 20 Meq Tab.Er) 40 meq PO ONETIME ONE Stop: 01/27/21 06:47 Last Admin: 01/27/21 08:00 Dose: 40 meq Documented by: Potassium Chloride (Potassium Chloride 20 Meq Tab.Er) 40 meq PO ONETIME ONE Stop: 01/27/21 16:16 Last Admin: 01/27/21 17:09 Dose: 40 meq Documented by: Potassium Chloride (Potassium Chloride 20 Meq Tab.Er) 40 meq PO ONETIME ONE Stop: 01/28/21 08:01 Last Admin: 01/28/21 08:48 Dose: 40 meq Documented by: - Exam Quality Assessment: No: Supplemental Oxygen General: Alert, Oriented, Cooperative, No Acute Distress Neck: Supple Lungs: Normal Respiratory Effort. No: Wheezing Cardiovascular: Regular Rate, Regular Rhythm GI/Abdominal Exam: Soft, No Distention Extremities: No Pedal Edema. No: Increased Warmth Skin: Warm, Dry Psy/Mental Status: Alert, Normal Affect - Patient Data Lab Results Last 24 hrs: Laboratory Results - last 24 hr 01/27/21 01/27/21 01/27/21 Range/Units 10:49 15:24 17:12 WBC (4.5-11.0) K/uL RBC (4.30-5.90) M/uL Hgb (12.0-15.0) g/dL Hct (40.0-54.0) % MCV (80-98) fL MCH (27-31) pg MCHC (32-36) % Plt Count (150-400) K/uL Sodium (140-148) mmol/L Potassium 3.3 L (3.6-5.2) mmol/L Chloride (100-108) mmol/L Carbon Dioxide (21-32) mmol/L Anion Gap (5.0-14.0) mmol/L BUN (7-18) mg/dL Creatinine (0.8-1.3) mg/dL Est Cr Clr Drug Dosing mL/min Estimated GFR (MDRD) (>60) Glucose (74-106) mg/dL POC Glucose 246 H 204 H (74-106) mg/dL Calcium (8.5-10.1) mg/dL 01/27/21 01/28/21 01/28/21 Range/Units 21:26 05:30 05:30 WBC 7.1 (4.5-11.0) K/uL RBC 3.24 L (4.30-5.90) M/uL Hgb 10.1 L (12.0-15.0) g/dL Hct 27.7 L (40.0-54.0) % MCV 86 (80-98) fL MCH 31 (27-31) pg MCHC 37 H (32-36) % Plt Count 138 L (150-400) K/uL Sodium 131 L (140-148) mmol/L Potassium 3.3 L (3.6-5.2) mmol/L Chloride 95 L (100-108) mmol/L Carbon Dioxide 28 (21-32) mmol/L Anion Gap 11.3 (5.0-14.0) mmol/L BUN 27 H (7-18) mg/dL Creatinine 1.0 (0.8-1.3) mg/dL Est Cr Clr Drug Dosing 99.29 mL/min Estimated GFR (MDRD) > 60 (>60) Glucose 328 H (74-106) mg/dL POC Glucose 164 H (74-106) mg/dL Calcium 7.4 L (8.5-10.1) mg/dL 01/28/21 Range/Units 08:42 WBC (4.5-11.0) K/uL RBC (4.30-5.90) M/uL Hgb (12.0-15.0) g/dL Hct (40.0-54.0) % MCV (80-98) fL MCH (27-31) pg MCHC (32-36) % Plt Count (150-400) K/uL Sodium (140-148) mmol/L Potassium (3.6-5.2) mmol/L Chloride (100-108) mmol/L Carbon Dioxide (21-32) mmol/L Anion Gap (5.0-14.0) mmol/L BUN (7-18) mg/dL Creatinine (0.8-1.3) mg/dL Est Cr Clr Drug Dosing mL/min Estimated GFR (MDRD) (>60) Glucose (74-106) mg/dL POC Glucose 423 H* (74-106) mg/dL Calcium (8.5-10.1) mg/dL Result Diagrams: 01/28/21 05:30 01/28/21 05:30 Sepsis Event Note - Evaluation Sepsis Screening Result: No Definite Risk - Focused Exam Vital Signs: Vital Signs Temp Pulse Resp BP Pulse Ox 01/28/21 08:00 36.8 C 85 10 L 106/63 96 01/28/21 06:00 91 13 117/76 97 01/28/21 04:00 36.7 C 84 13 119/69 97 01/28/21 02:00 89 12 117/64 96 01/28/21 00:00 91 11 L 119/68 96 01/27/21 22:00 88 19 107/63 98 - Problem List Review Problem List Initiated/Reviewed/Updated: Yes - My Orders Last 24 Hours: My Active Orders 01/28/21 08:47 Dextrose 50% in Water 50 ml IVPUSH ASDIRECTED PRN Glucagon,Human Recombinant [GlucaGen] 1 mg IM ASDIRECTED PRN 01/28/21 09:44 Transfer Patient (Change bed) [ADT] Routine 01/28/21 09:45 Discontinue Telemetry Monitoring [Cardiac Monitoring Discontinue] [RC] Click to Edit PT Evaluation and Treatment [CONS] Routine NS + KCl 20mEq/L [Normal Saline with 20 mEq KCl] 1,000 ml IV ASDIRECTED 01/29/21 05:00 BASIC METABOLIC PANEL,BMP [CHEM] Timed CBC W/O DIFF,HEMOGRAM [HEME] Timed (1) - Plan Plan:: ASSESSMENT AND PLAN - SYNCOPE-MRI of the brain unremarkable. Echo unremarkable. Probably related to intravascular volume depletion and severe electrolyte abnormalities. Vital signs have been stable. I would anticipate he should do okay with ambulation now that he is volume replete. -Continue gentle fluids -Discontinue cardiac monitoring -Physical therapy HYPERGLYCEMIA-improving with supplemental insulin. -Lantus 25 units nightly -Moderate dose sliding scale NovoLog -4 times daily glucometers ALCOHOL WITHDRAWAL-patient is not requiring lorazepam at this time. No evidence for ongoing alcohol withdrawal. -Oral folic acid and thiamine -Discontinue alcohol withdrawal protocol DEHYDRATION-improving with hydration. -IV fluids HYPONATREMIA-likely associated with dehydration. Sodium level steadily impro ving. -Gentle continue IV fluids -Reassess sodium level in a.m. HYPOKALEMIA-significant hypokalemia has been improving with supplementation. -oral potassium replacement this a.m. -Add potassium to IV fluids -Reassess potassium level in a.m. ANXIETY AND INSOMNIA-by history it sounds that both of these issues are significant driving factors and his alcohol use. When not using alcohol he reports almost daily panic attacks. He has been seeing a counselor and is planning on establishing with one of the primary care providers for further management of these issues. MAINTENANCE ISSUES -DVT prophylaxis; SCUDs -GI prophylaxis; not indicated -Webber catheter; not indicated -Nutrition; consistent carbohydrate diet DISPOSITION-anticipate discharge to home after the hospital stay, Possibly tomorrow if stable overnight Herb Fuentes MD
[2021-01-28] MEDS: NS + KCl 20mEq/L 1,000 ML IV SCH (10:49)
[2021-01-28] MEDS: Insulin Glargine,Human Rec. Analog 100 Units/ML 3 ML Pen SUBCUT SCH (22:48)
[2021-01-28] MEDS: atorvaSTATin 20 MG Tab PO SCH (22:54)
[2021-01-28] MEDS: Pantoprazole 40 MG Tab.CR PO SCH (22:56)
[2021-01-29] MEDS: NS + KCl 20mEq/L 1,000 ML IV SCH (00:49)
[2021-01-29] MEDS: Gabapentin 400 MG Cap PO SCH (05:31)
[2021-01-29 07:12] VITALS: BP 139/79; PULSE 88
[2021-01-29] MEDS: Insulin Lispro 100 Unit/ML 3 ML KwikPen SUBCUT SCH (07:29)
[2021-01-29] MEDS ORDERED: Potassium Chloride 20 MEQ Tab.ER PO ONE (09:00)
[2021-01-29] MEDS: Thiamine 100 MG Tab PO SCH (10:02)
[2021-01-29] MEDS: Folic Acid 1 MG Tab PO SCH (10:02)
--- NOTE | 2021-01-29 10:39 | PCM.DCSUM1 ---
Discharge Summary - Hospital Course Brief History: 50-year-old male with history of generalized anxiety disorder, alcohol dependence and insulin-dependent diabetes mellitus who presented with recurrent episodes of syncope and collapse. He was admitted for management of severe dehydration leading to acute kidney injury, severe hyponatremia, hypokalemia and recurrent syncope. - Discharge Data Discharge Date: 01/29/21 Discharge Disposition: Home, Self-Care 01 Condition: Good - Referral to Home Health Primary Care Physician: PCP None - Discharge Diagnosis/Problem(s) (1) Acute kidney injury SNOMED Code(s): 80776282, 49242340 ICD Code: N17.9 - ACUTE KIDNEY FAILURE, UNSPECIFIED Status: Acute (2) Hyponatremia SNOMED Code(s): 95662864 ICD Code: E87.1 - HYPO-OSMOLALITY AND HYPONATREMIA Status: Acute (3) Hypokalemia SNOMED Code(s): 41217038 ICD Code: E87.6 - HYPOKALEMIA Status: Acute (4) Generalized weakness SNOMED Code(s): 55695739 ICD Code: R53.1 - WEAKNESS Status: Acute (5) Syncope and collapse SNOMED Code(s): 217866772 ICD Code: R55 - SYNCOPE AND COLLAPSE Status: Acute (6) Severe dehydration SNOMED Code(s): 501331460 ICD Code: E86.0 - DEHYDRATION Status: Acute (7) Alcohol dependence syndrome SNOMED Code(s): 32938496 ICD Code: F10.20 - ALCOHOL DEPENDENCE, UNCOMPLICATED Status: Chronic Qualifiers: Substance use status: alcohol-induced mood disorder Qualified Code(s): F10.24 - Alcohol dependence with alcohol-induced mood disorder (8) Generalized anxiety disorder SNOMED Code(s): 56487777 ICD Code: F41.1 - GENERALIZED ANXIETY DISORDER Status: Chronic (9) Insulin dependent diabetes mellitus SNOMED Code(s): 92413760 ICD Code: [id number] - Status: Chronic - Patient Summary/Data Consults: Consultations 01/28/21 09:45 PT Evaluation and Treatment [CONS] Routine Please Evaluate and Treat. PT Reason for Consult: Strengthening This query below is only for informational purposes and is not editable. Admission Diagnosis/Problem: Alcohol withdrawal delirium Hospital Course: Power presented to the emergency room with progressive weakness, multiple episodes of syncope. Work-up in the emergency room revealed evidence for severe intravascular volume depletion with acute kidney injury, severe hyponatremia, significant hypokalemia as well as hyperglycemia in the setting of insulin- dependent diabetes. There is no evidence for diabetic ketoacidosis. There was no evidence for infection. Head CT was unremarkable. Patient was started on electrolyte replacement with normal saline as well as aggressive potassium supplementation. Overnight following admission there were no acute issues though the patient was very sleepy the next day. He did have an MRI of the brain which was unremarkable. He had an echocardiogram performed which was also unremarkable and showed a normal ejection fraction, no wall motion abnormalities and no valve issues. His sodium and potassium did steadily improve throughout the course of the hospital stay though he did require a large quantity of potassium to get his level up to low normal. His heart rate improved with the hydration. After initially being sleepy during the early part of the hospital stay he has woke up and been very normal. Very briefly there is some concern for alcohol withdrawal though I think this was just sleep deprivation. I suspect that the severe dehydration was acute on chronic given his regular alcohol use leading to profound dehydration along with the episodes of syncope. He did work with physical therapy and has made great gains with his strength. He has been ambulating effectively in the hallway. Initially he required a walker but on the morning of discharge was able to carry the walker down the hallway rather than use it for balance. His sodium level has normalized. Potassium level is right at the lower limit of normal. He has done well and feels ready to go home at this time. We did spend some time discussing alcohol use as well as his anxiety and sleep difficulties. He has already [facility] to get counseling to help stay away from alcohol. He had been sober for 4 years before restarting in July of last year. He feels he has adequate regarding his alcohol use at this time. He describes generalized anxiety disorder with possibly some panic attacks. He was interested in trying some medication to help calm this down. We discussed potential treatment options and decided on using citalopram for his daily controller medication. I did prescribe BuSpar to use for breakthrough anxiety as well as trazodone to use to help with sleep. Hopefully controlling his anxiety and helping him get a good night sleep well reduced his cravings for alcohol which she has been using to self medicate. He has follow-up planned in 2 days time and will continue his counseling through [facility]. - Patient Instructions Diet: Regular Diet as Tolerated Activity: As Tolerated Showering/Bathing: May Shower Other/Special Instructions: 1. You were in the hospital for management of severe dehydration that led to acute kidney injury, low sodium, low potassium and recurrent episodes of syncope. I suspect this was caused by acute on chronic dehydration and intravascular volume depletion. Your condition has improved with IV fluid hydration and electrolyte replacement. I would encourage you to drink 64 ounces of water each daily to maintain hydration. It is important to remember that alcohol causes you to excrete excess fluid beyond your intake and can lead to dehydration quickly and especially if it is used regularly over a long period of time. 2. We discussed both your anxiety and difficulty with sleep during the hospital stay. I recommend that we start a combination of medications to help with both of these issues. Citalopram (Celexa) is an antidepressant and antianxiety medication that can help reduce your daily anxiety level. You should take 1 capsule daily in the morning. This medication can be increased after 2 to 4 weeks if you have some benefit but not quite optimal response. I have also provided a prescription for buspirone (BuSpar) that you can use if you have breakthrough anxiety during the course of the day. I have prescribed trazodone to help with your sleep. You should take 1 tablet approximately 1 hour prior to your desired sleep onset time. 3. Continue your usual home medications as previously prescribed. 4. Follow up as scheduled with primary care on Wednesday and with [facility] for ongoing counseling. - Discharge Plan *PRESCRIPTION DRUG MONITORING PROGRAM REVIEWED*: Not Applicable *COPY OF PRESCRIPTION DRUG MONITORING REPORT IN PATIENT ELIAS: Not Applicable Prescriptions/Med Rec: busPIRone [Buspar] 5 mg PO BID PRN #60 tablet PRN Reason: Anxiety Citalopram [Citalopram HBr] 20 mg PO DAILY #30 tab traZODone 50 mg PO BEDTIME #30 tab Home Medications: Home Meds Insulin Aspart [NovoLOG] 0 unit WITHMEALSANDBED 01/26/21 [History] Insulin Degludec [Tresiba Flextouch U-100] 25 unit SUBCUT BEDTIME 01/26/21 [History] Omeprazole Magnesium [Prilosec Otc] 20 mg PO BEDTIME 01/26/21 [History] atorvaSTATin [Lipitor] 20 mg PO BEDTIME 01/26/21 [History] Citalopram [Citalopram HBr] 20 mg PO DAILY #30 tab 01/29/21 [Rx] busPIRone [Buspar] 5 mg PO BID PRN #60 tablet 01/29/21 [Rx] traZODone 50 mg PO BEDTIME #30 tab 01/29/21 [Rx] Oxygen Therapy Mode: Room Air Patient Handouts: Generalized Anxiety Disorder, Adult, Trazodone tablets, Citalopram tablets, Buspirone tablets Referrals: Zeenat Turner DO [Physician] - 01/31/21 8:20 am (Please arrive 15 minutes early to register for your appointment.) - Discharge Summary/Plan Comment DC Time >30 min.: No - Patient Data Vitals - Most Recent: Last Vital Signs Temp 35.3 C L 01/29/21 07:00 Pulse 88 01/29/21 07:00 Resp 16 01/29/21 07:00 BP 139/79 01/29/21 07:00 Pulse Ox 96 01/29/21 07:00 Orthostatic Blood Pressure [ 78/45 Standing] Orthostatic Blood Pressure [ 130/72 Sitting] Orthostatic Blood Pressure [ 139/78 Supine] Weight - Most Recent: 86.183 kg I&O - Last 24 hours: Intake & Output 01/28/21 01/29/21 01/29/21 22:59 06:59 14:59 Intake Total 275 830 600 Output Total 1625 1350 325 Balance -1350 -520 275 Lab Results - Last 24 hrs: Laboratory Results - last 24 hr 01/28/21 01/28/21 01/28/21 Range/Units 11:21 17:43 21:34 WBC (4.5-11.0) K/uL RBC (4.30-5.90) M/uL Hgb (12.0-15.0) g/dL Hct (40.0-54.0) % MCV (80-98) fL MCH (27-31) pg MCHC (32-36) % Plt Count (150-400) K/uL Sodium (140-148) mmol/L Potassium (3.6-5.2) mmol/L Chloride (100-108) mmol/L Carbon Dioxide (21-32) mmol/L Anion Gap (5.0-14.0) mmol/L BUN (7-18) mg/dL Creatinine (0.8-1.3) mg/dL Est Cr Clr Drug Dosing mL/min Estimated GFR (MDRD) (>60) Glucose (74-106) mg/dL POC Glucose 210 H 376 H 399 H (74-106) mg/dL Calcium (8.5-10.1) mg/dL 01/29/21 01/29/21 01/29/21 Range/Units 05:10 05:10 07:19 WBC 9.3 (4.5-11.0) K/uL RBC 3.17 L (4.30-5.90) M/uL Hgb 9.7 L (12.0-15.0) g/dL Hct 27.8 L (40.0-54.0) % MCV 88 (80-98) fL MCH 31 (27-31) pg MCHC 35 (32-36) % Plt Count 184 (150-400) K/uL Sodium 136 L (140-148) mmol/L Potassium 3.4 L (3.6-5.2) mmol/L Chloride 102 (100-108) mmol/L Carbon Dioxide 26 (21-32) mmol/L Anion Gap 11.4 (5.0-14.0) mmol/L BUN 18 (7-18) mg/dL Creatinine 0.8 (0.8-1.3) mg/dL Est Cr Clr Drug Dosing 124.12 mL/min Estimated GFR (MDRD) > 60 (>60) Glucose 237 H (74-106) mg/dL POC Glucose 247 H (74-106) mg/dL Calcium 7.6 L (8.5-10.1) mg/dL Med Orders - Current: Current Medications Acetaminophen (Acetaminophen 325 Mg Tab) 650 mg PO Q4H PRN PRN Reason: Pain (Mild 1-3)/fever Atorvastatin Calcium (Atorvastatin 20 Mg Tab) 20 mg PO BEDTIME [facility] Last Admin: 01/28/21 22:54 Dose: 20 mg Documented by: Dextrose (Glucose Gel 15 Gm In 37.5 Gm Tube) 15 gm PO ONETIME PRN PRN Reason: Hypoglycemia Dextrose/Water (50% Dextrose In Water 50 Ml Syringe) 50 ml IVPUSH ASDIRECTED PRN PRN Reason: Hypoglycemia Folic Acid (Folic Acid 1 Mg Tab) 1 mg PO DAILY [facility] Last Admin: 01/29/21 10:02 Dose: 1 mg Documented by: Gabapentin (Gabapentin 100 Mg Cap) 200 mg PO Q8H [facility] Stop: 02/03/21 22:01 Gabapentin (Gabapentin 400 Mg Cap) 400 mg PO Q8H [facility] Last Admin: 01/29/21 05:31 Dose: 400 mg Documented by: Glucagon (Glucagon,Human Recombinant 1 Mg Vial) 1 mg IM ASDIRECTED PRN PRN Reason: Hypoglycemia Potassium Chloride/Sodium Chloride (Normal Saline With 20 Meq Kcl) 1,000 mls @ 75 mls/hr IV ASDIRECTED [facility] Last Admin: 01/29/21 00:49 Dose: 75 mls/hr Documented by: Insulin Glargine (Insulin Glargine,Human Rec. Analog 100 Units/Ml 3 Ml Pen) 25 units SUBCUT BEDTIME [facility] Last Admin: 01/28/21 22:48 Dose: 25 units Documented by: Insulin Human Lispro (Insulin Lispro 100 Unit/Ml 3 Ml Kwikpen) 0 unit SUBCUT QIDACANDBED [facility]; Protocol Last Admin: 01/29/21 07:29 Dose: 4 units Documented by: Ondansetron HCl (Ondansetron 4 Mg/2 Ml Sdv) 4 mg IV Q4H PRN PRN Reason: Nausea/Vomiting Pantoprazole Sodium (Pantoprazole 40 Mg Tab.Cr) 40 mg PO BEDTIME [facility] Last Admin: 01/28/21 22:56 Dose: 40 mg Documented by: Polyethylene Glycol (Polyethylene Glycol 3350 Powder 17 Gm Packet) 17 gm PO DAILY PRN PRN Reason: Constipation Thiamine HCl (Thiamine 100 Mg Tab) 100 mg PO DAILY [facility] Last Admin: 01/29/21 10:02 Dose: 100 mg Documented by: Discontinued Medications Gabapentin (Gabapentin 400 Mg Cap) 400 mg PO Q8H [facility] Stop: 01/30/21 22:48 Last Admin: 01/27/21 07:00 Dose: Not Given Documented by: Multivitamins/Minerals 10 ml/Thiamine HCl 100 mg/ Folic Acid 1 mg/ Magnesium Sulfate 3 gm/ Sodium Chloride 1,017.2 mls @ 1,000 mls/hr IV ASDIRECTED [facility] Last Admin: 01/26/21 18:59 Dose: 1,000 mls/hr Documented by: Sodium Chloride (Normal Saline) 1,000 mls @ 999 mls/hr IV ASDIRECTED [facility] Last Admin: 01/26/21 20:20 Dose: 999 mls/hr Documented by: Potassium Chloride/Sodium Chloride (Normal Saline With 20 Meq Kcl) 1,000 mls @ 125 mls/hr IV ASDIRECTED [facility] Potassium Chloride 40 meq/ (Premix) 100 mls @ 25 mls/hr IV ONETIME ONE Stop: 01/27/21 01:54 Last Admin: 01/27/21 01:11 Dose: Not Given Documented by: Sodium Chloride (Normal Saline) 1,000 mls @ 125 mls/hr IV ASDIRECTED [facility] Last Admin: 01/28/21 08:27 Dose: 125 mls/hr Documented by: Potassium Chloride 20 meq/ (Premix) 100 mls @ 50 mls/hr IV ONETIME ONE Stop: 01/27/21 01:29 Last Admin: 01/26/21 23:42 Dose: 50 mls/hr Documented by: Potassium Chloride 20 meq/ (Premix) 100 mls @ 50 mls/hr IV ONETIME ONE Stop: 01/27/21 03:29 Last Admin: 01/27/21 02:03 Dose: 50 mls/hr Documented by: Potassium Chloride 20 meq/Lidocaine HCl 2 ml/ Sodium Chloride 112 mls @ 50 mls/hr IV Q2H [facility] Stop: 01/27/21 10:59 Last Admin: 01/27/21 09:53 Dose: 50 mls/hr Documented by: Insulin Human Lispro (Insulin Lispro 100 Unit/Ml 3 Ml Kwikpen) 12 unit SUBCUT ONETIME ONE Stop: 01/28/21 09:01 Last Admin: 01/28/21 08:54 Dose: 12 unit Documented by: Insulin Human Regular (Insulin Regular, Human 100 Units/Ml 3 Ml Vial) 10 unit IVPUSH ONETIME ONE Stop: 01/26/21 19:34 Last Admin: 01/26/21 20:03 Dose: 10 units Documented by: Lidocaine HCl (Lidocaine 1% 5 Ml Sdv) 2 ml INJECT Q2H PRN PRN Reason: add to potassium Last Admin: 01/27/21 02:03 Dose: 2 ml Documented by: Lidocaine HCl (Lidocaine 1% 5 Ml Sdv) 2 ml INJECT Q2H PRN PRN Reason: Other Lorazepam (Lorazepam 2 Mg/Ml Sdv) 0 mg IV ASDIRECTED [facility]; Protocol Last Admin: 01/27/21 04:33 Dose: 2 mg Documented by: Lorazepam (Lorazepam 1 Mg Tab) 0 mg PO ASDIRECTED [facility]; Protocol Last Admin: 01/27/21 02:28 Dose: 1 mg Documented by: Pantoprazole Sodium (Pantoprazole 40 Mg Vial) 40 mg IV Q12H [facility] Last Admin: 01/27/21 01:11 Dose: Not Given Documented by: Potassium Chloride (Potassium Chloride 20 Meq Tab.Er) 40 meq PO ONETIME ONE Stop: 01/26/21 21:56 Last Admin: 01/27/21 00:27 Dose: 40 meq Documented by: Potassium Chloride (Potassium Chloride 20 Meq Tab.Er) Confirm Administered Dose 40 meq .ROUTE .STK-MED ONE Stop: 01/27/21 00:27 Last Admin: 01/27/21 01:03 Dose: Not Given Documented by: Potassium Chloride (Potassium Chloride 20 Meq Tab.Er) 40 meq PO ONETIME ONE Stop: 01/27/21 06:47 Last Admin: 01/27/21 08:00 Dose: 40 meq Documented by: Potassium Chloride (Potassium Chloride 20 Meq Tab.Er) 40 meq PO ONETIME ONE Stop: 01/27/21 16:16 Last Admin: 01/27/21 17:09 Dose: 40 meq Documented by: Potassium Chloride (Potassium Chloride 20 Meq Tab.Er) 40 meq PO ONETIME ONE Stop: 01/28/21 08:01 Last Admin: 01/28/21 08:48 Dose: 40 meq Documented by: Potassium Chloride (Potassium Chloride 20 Meq Tab.Er) 40 meq PO ONETIME ONE Stop: 01/29/21 09:01 Last Admin: 01/29/21 10:03 Dose: 40 meq Documented by: *Q Meaningful Use (DIS) - VTE *Q VTE Anticoagulation Contraindications: Med/TX Not Indicated/Need
[2021-01-30] MEDS ORDERED: Gabapentin 100 MG Cap PO SCH (22:00)
== END 2021-01-29 11:30 | disposition home or self-care (01) | DRG 683 ==
LOC: JP.ED 17:41 → JP.ICU 21:55 → JP.MS 01-28 14:00
PROVIDERS: ADMIT Hospitalist; ATTEND Internal Medicine
DX: N17.9 Acute kidney failure, unspecified (principal); E87.1 Hypo-osmolality and hyponatremia; F10.24 Alcohol dependence with alcohol-induced mood disorder; F41.1 Generalized anxiety disorder; E87.6 Hypokalemia; E86.0 Dehydration; E86.9 Volume depletion, unspecified; E11.65 Type 2 diabetes mellitus with hyperglycemia; G47.00 Insomnia, unspecified; K21.9 Gastro-esophageal reflux disease without esophagitis; F41.0 Panic disorder [episodic paroxysmal anxiety]; Z79.4 Long term (current) use of insulin
CPT/HCPCS: 36415; 36600; 70450; 70551; 71046; 72070; 72100; 80048; 80053; 80307; 82803; 82947; 83690; 83735; 84132; 84443; 85025; 85027; 93306; 96365; 97161-GP; 97530-GP; 99222; 99232; 99238; 99285; 99285-25; A9270-GY; J1815; J1815-GY; J2060; J3411; J3475; J3480; J3490; J7030

== ENCOUNTER 2021-08-17 11:26 | Emergency (ER) | payer SELFPAY ==
[2021-08-17] MEDS ORDERED: Sodium Chloride 0.9% 10 ML Syringe FLUSH PRN (12:10)
--- NOTE | 2021-08-17 12:21 | EDM.PDOC ---
ED HPI GENERAL MEDICAL PROBLEM - General Chief Complaint: General Stated Complaint: RIBS AND BACK PAIN, LIGHT HEADED, WEAK Time Seen by Provider: 08/17/21 12:00 Source of Information: Reports: Patient, Old Records, RN History Limitations: Reports: No Limitations - History of Present Illness INITIAL COMMENTS - FREE TEXT/NARRATIVE: 51 yo male on insulin presents with a few day hx of light-headedness. He had a fall and injured ribs on the R posterior part of his chest. He has not been checking his BS or taking his insulin lately. His vision is a bit blurred. He denies nausea and vomiting. No fever. He feels a little SOB. Has a pHx of alcohol abuse. I asked him if there was anything else I should know that he has not told me so far in reference to his tremors and all he would admit is that he has not eaten recently. He admitted nothing about alcohol. 01/29/21 his Hgb was similar to today's. There has not been any recent clinic hgb checks. Onset: Gradual Duration: Day(s):, Getting Worse Location: Reports: Generalized Quality: Reports: Other (pain is not reported except to the R flank area since his fall. ) Severity: Moderate Improves with: Reports: Rest Worsens with: Reports: Movement (or coughing or deep breathing) Context: Reports: Trauma, Other (IDDM) Associated Symptoms: Reports: Malaise, Shortness of Breath, Weakness. Denies: Fever/Chills, Loss of Appetite, Nausea/Vomiting Treatments ROLL EXAMINER: Reports: Other (see below) (none) Right Middle Back Pain Score (Numeric/FACES): 10 - Related Data Allergies Allergy/AdvReac Type Severity Reaction Status Date / Time No Known Allergies Allergy Verified 08/17/21 11:54 Home Meds: Home Meds Insulin Aspart [NovoLOG] 0 unit WITHMEALSANDBED 01/26/21 [History] Insulin Degludec [Tresiba Flextouch U-100] 25 unit SUBCUT BEDTIME 01/26/21 [History] Omeprazole Magnesium [Prilosec Otc] 20 mg PO BEDTIME 01/26/21 [History] atorvaSTATin [Lipitor] 20 mg PO BEDTIME 01/26/21 [History] Citalopram [Citalopram HBr] 20 mg PO DAILY #30 tab 01/29/21 [Rx] busPIRone [Buspar] 5 mg PO BID PRN #60 tablet 01/29/21 [Rx] Gabapentin [Neurontin] 300 mg PO TID 08/17/21 [History] hydrOXYzine HCL [Hydroxyzine HCl] 50 mg PO BEDTIME 08/17/21 [History] Past Medical History HEENT History: Reports: None Cardiovascular History: Reports: None Respiratory History: Reports: None Gastrointestinal History: Reports: GERD Genitourinary History: Reports: None Neurological History: Reports: Neuropathy, Diabetic Psychiatric History: Reports: Anxiety Endocrine/Metabolic History: Reports: Diabetes, Type I - Infectious Disease History Infectious Disease History: Reports: Chicken Pox - Past Surgical History HEENT Surgical History: Reports: None Other Musculoskeletal Surgeries/Procedures:: knee surgery Social & Family History - Family History Family Medical History: No Pertinent Family History - Tobacco Use Tobacco Use Status *Q: Never Tobacco User - Caffeine Use Caffeine Use: Reports: Coffee - Recreational Drug Use Recreational Drug Use: No - Living Situation & Occupation Living situation: Reports: Occupation: Employed ED ROS GENERAL - Review of Systems Review Of Systems: See Below Constitutional: Reports: Malaise, Weakness HEENT: Reports: No Symptoms Respiratory: Reports: Shortness of Breath Cardiovascular: Reports: Dyspnea on Exertion, Lightheadedness Endocrine: Reports: Fatigue GI/Abdominal: Reports: No Symptoms : Reports: No Symptoms Musculoskeletal: Reports: No Symptoms Skin: Reports: No Symptoms Neurological: Reports: No Symptoms ED EXAM, GENERAL - Physical Exam Exam: See Below Exam Limited By: No Limitations General Appearance: Alert, WD/WN, No Apparent Distress Eye Exam: Bilateral Eye: Normal Inspection Ears: Normal External Exam, Normal Canal, Hearing Grossly Normal, Normal TMs Ear Exam: Bilateral Ear: Auricle Normal, Canal Normal, TM normal Nose: Normal Inspection, No Blood Throat/Mouth: Normal Inspection, Normal Lips, Normal Oropharynx, Normal Voice, No Airway Compromise Head: Atraumatic, Normocephalic Neck: Normal Inspection Respiratory/Chest: No Respiratory Distress, Lungs Clear, Normal Breath Sounds. No: Chest Non-Tender (tender over ribs near R flank) Cardiovascular: Regular Rate, Rhythm, No Edema, Tachycardia GI/Abdominal: Normal Bowel Sounds, Soft, Non-Tender, No Distention. No: Distended Rectal (Males) Exam: Normal Exam, Normal Rectal Tone, Other (brown, formed stool). No: Black Stool Back Exam: Normal Inspection. No: CVA Tenderness (R), CVA Tenderness (L) Extremities: Normal Inspection, Normal Range of Motion, Non-Tender, No Pedal Edema Neurological: Alert, Oriented, CN II-XII Intact, Normal Cognition, No Motor/Sensory Deficits Psychiatric: Normal Affect, Normal Mood Skin Exam: Warm, Dry, Intact, Normal Color, No Rash Course - Vital Signs Last Recorded V/S: Last Vital Signs Temp 36.6 C 08/17/21 11:47 Pulse 111 H 08/17/21 14:01 Resp 25 H 08/17/21 14:01 BP 153/87 H 08/17/21 14:01 Pulse Ox 98 08/17/21 14:01 - Orders/Labs/Meds Orders: Active Orders 24 hr Category Date Time Status UA W/MICROSCOPIC [URIN] Stat Lab 08/17/21 12:09 Ordered Dextrose 50% in Water Med 08/17/21 12:49 Active 50 ml IVPUSH ASDIRECTED PRN Dextrose 50% in Water Med 08/17/21 14:08 Active 50 ml IVPUSH ASDIRECTED PRN Glucagon,Human Recombinant [GlucaGen] Med 08/17/21 12:49 Active 1 mg IM ASDIRECTED PRN Glucagon,Human Recombinant [GlucaGen] Med 08/17/21 14:08 Active 1 mg IM ASDIRECTED PRN Sodium Chloride 0.9% [Saline Flush] Med 08/17/21 12:10 Active 10 ml FLUSH ASDIRECTED PRN Saline Lock Insert [OM.PC] Routine Oth 08/17/21 12:10 Ordered Medication Orders Dextrose/Water (50% Dextrose In Water 50 Ml Syringe) 50 ml IVPUSH ASDIRECTED PRN PRN Reason: Hypoglycemia Dextrose/Water (50% Dextrose In Water 50 Ml Syringe) 50 ml IVPUSH ASDIRECTED PRN PRN Reason: Hypoglycemia Glucagon (Glucagon,Human Recombinant 1 Mg Vial) 1 mg IM ASDIRECTED PRN PRN Reason: Hypoglycemia Glucagon (Glucagon,Human Recombinant 1 Mg Vial) 1 mg IM ASDIRECTED PRN PRN Reason: Hypoglycemia Sodium Chloride (Sodium Chloride 0.9% 10 Ml Syringe) 10 ml FLUSH ASDIRECTED PRN PRN Reason: Keep Vein Open Last Admin: 08/17/21 12:23 Dose: 10 ml Documented by: PREILOR Labs: Laboratory Tests 08/17/21 08/17/21 08/17/21 Range/Units 12:09 12:10 12:27 WBC 6.5 (4.5-11.0) K/uL RBC 3.52 L (4.30-5.90) M/uL Hgb 9.6 L (12.0-15.0) g/dL Hct 28.3 L (40.0-54.0) % MCV 80 (80-98) fL MCH 27 (27-31) pg MCHC 34 (32-36) % Plt Count 186 (150-400) K/uL D-Dimer, Quantitative (0.0-500.0) ng/mL VBG pH 7.416 (7.350-7.450) Sodium (140-148) mmol/L Potassium (3.6-5.2) mmol/L Chloride (100-108) mmol/L Carbon Dioxide (21-32) mmol/L Anion Gap (5.0-14.0) mmol/L BUN (7-18) mg/dL Creatinine (0.8-1.3) mg/dL Est Cr Clr Drug Dosing mL/min Estimated GFR (MDRD) (>60) Glucose (74-106) mg/dL POC Glucose (74-106) mg/dL Calcium (8.5-10.1) mg/dL Troponin I High Sens (<=60.3) pg/mL SARS CoV-2 RNA Rapid BINDU Negative 08/17/21 08/17/21 08/17/21 Range/Units 12:30 13:09 13:09 WBC (4.5-11.0) K/uL RBC (4.30-5.90) M/uL Hgb (12.0-15.0) g/dL Hct (40.0-54.0) % MCV (80-98) fL MCH (27-31) pg MCHC (32-36) % Plt Count (150-400) K/uL D-Dimer, Quantitative 720.92 H (0.0-500.0) ng/mL VBG pH (7.350-7.450) Sodium 134 L (140-148) mmol/L Potassium 3.9 (3.6-5.2) mmol/L Chloride 93 L (100-108) mmol/L Carbon Dioxide 16 L (21-32) mmol/L Anion Gap 28.9 H (5.0-14.0) mmol/L BUN 15 (7-18) mg/dL Creatinine 1.2 (0.8-1.3) mg/dL Est Cr Clr Drug Dosing 86.58 mL/min Estimated GFR (MDRD) > 60 (>60) Glucose 334 H (74-106) mg/dL POC Glucose (74-106) mg/dL Calcium 9.2 D (8.5-10.1) mg/dL Troponin I High Sens 4.9 (<=60.3) pg/mL SARS CoV-2 RNA Rapid BINDU 08/17/21 Range/Units 13:51 WBC (4.5-11.0) K/uL RBC (4.30-5.90) M/uL Hgb (12.0-15.0) g/dL Hct (40.0-54.0) % MCV (80-98) fL MCH (27-31) pg MCHC (32-36) % Plt Count (150-400) K/uL D-Dimer, Quantitative (0.0-500.0) ng/mL VBG pH (7.350-7.450) Sodium (140-148) mmol/L Potassium (3.6-5.2) mmol/L Chloride (100-108) mmol/L Carbon Dioxide (21-32) mmol/L Anion Gap (5.0-14.0) mmol/L BUN (7-18) mg/dL Creatinine (0.8-1.3) mg/dL Est Cr Clr Drug Dosing mL/min Estimated GFR (MDRD) (>60) Glucose (74-106) mg/dL POC Glucose 321 H (74-106) mg/dL Calcium (8.5-10.1) mg/dL Troponin I High Sens (<=60.3) pg/mL SARS CoV-2 RNA Rapid BINDU Meds: Medications Generic Name Dose Route Start Last Admin Trade Name Freq PRN Reason Stop Dose Admin Dextrose/Water 50 ml 08/17/21 12:49 50% Dextrose In Water 50 Ml Syringe IVPUSH ASDIRECTED PRN Hypoglycemia Dextrose/Water 50 ml 08/17/21 14:08 50% Dextrose In Water 50 Ml Syringe IVPUSH ASDIRECTED PRN Hypoglycemia Glucagon 1 mg 08/17/21 12:49 Glucagon,Human Recombinant 1 Mg Vial IM ASDIRECTED PRN Hypoglycemia Glucagon 1 mg 08/17/21 14:08 Glucagon,Human Recombinant 1 Mg Vial IM ASDIRECTED PRN Hypoglycemia Sodium Chloride 10 ml 08/17/21 12:10 08/17/21 12:23 Sodium Chloride 0.9% 10 Ml Syringe FLUSH 10 ml ASDIRECTED PRN Administration Keep Vein Open Discontinued Medications Generic Name Dose Route Start Last Admin Trade Name Vickey PRN Reason Stop Dose Admin Sodium Chloride 1,000 mls @ 1,000 mls/hr 08/17/21 12:48 08/17/21 12:59 Normal Saline IV 08/17/21 13:47 1,000 mls/hr .BOLUS ONE Administration Insulin Human Regular 12 unit 08/17/21 12:49 08/17/21 12:58 Insulin Regular, Human 100 Units/Ml 3 Ml Vial SUBCUT 08/17/21 12:50 12 units ONETIME ONE Administration Insulin Human Regular 10 unit 08/17/21 14:08 08/17/21 14:17 Insulin Regular, Human 100 Units/Ml 3 Ml Vial SUBCUT 08/17/21 14:09 10 units ONETIME ONE Administration Metoclopramide HCl 5 mg 08/17/21 12:44 08/17/21 12:59 Metoclopramide 10 Mg/2 Ml Sdv IVPUSH 08/17/21 12:45 5 mg ONETIME ONE Administration - Re-Assessments/Exams Free Text/Narrative Re-Assessment/Exam: 08/17/21 14:15 shortly after I came out of the room from my initial assessment the nausea that he denies having when I was in the room was reported to his nurse. Free Text/Narrative Re-Assessment/Exam: 08/17/21 14:35 I asked him if he had ever felt like this before and he said once and it was from not eating. Departure - Departure Time of Disposition: 14:35 Disposition: Home, Self-Care 01 Condition: Fair Clinical Impression: Coarse tremors, Elevated blood sugar, Rapid heart rate - Discharge Information *PRESCRIPTION DRUG MONITORING PROGRAM REVIEWED*: Not Applicable *COPY OF PRESCRIPTION DRUG MONITORING REPORT IN PATIENT ELIAS: Not Applicable Instructions: Hyperglycemia, [id number] Referrals: Zeenat Turner DO [Primary Care Provider] - Forms: ED Department Discharge Additional Instructions: Watch your blood sugars closely and adjust your insulin as needed. Use Zofran as needed for nausea control. Stay in touch with your provider regarding your condition. Sepsis Event Note (ED) - Evaluation Sepsis Screening Result: No Definite Risk - Focused Exam Vital Signs: Vital Signs Temp Pulse Resp BP Pulse Ox 08/17/21 14:01 111 H 25 H 153/87 H 98 08/17/21 13:00 122 H 28 H 147/93 H 98 08/17/21 11:47 36.6 C 122 H 22 H 138/87 98 - My Orders Last 24 Hours: My Active Orders 08/17/21 12:09 UA W/MICROSCOPIC [URIN] Stat 08/17/21 12:10 Sodium Chloride 0.9% [Saline Flush] 10 ml FLUSH ASDIRECTED PRN Saline Lock Insert [OM.PC] Routine 08/17/21 12:49 Dextrose 50% in Water 50 ml IVPUSH ASDIRECTED PRN Glucagon,Human Recombinant [GlucaGen] 1 mg IM ASDIRECTED PRN 08/17/21 14:08 Dextrose 50% in Water 50 ml IVPUSH ASDIRECTED PRN Glucagon,Human Recombinant [GlucaGen] 1 mg IM ASDIRECTED PRN - Assessment/Plan Last 24 Hours: My Active Orders 08/17/21 12:09 UA W/MICROSCOPIC [URIN] Stat 08/17/21 12:10 Sodium Chloride 0.9% [Saline Flush] 10 ml FLUSH ASDIRECTED PRN Saline Lock Insert [OM.PC] Routine 08/17/21 12:49 Dextrose 50% in Water 50 ml IVPUSH ASDIRECTED PRN Glucagon,Human Recombinant [GlucaGen] 1 mg IM ASDIRECTED PRN 08/17/21 14:08 Dextrose 50% in Water 50 ml IVPUSH ASDIRECTED PRN Glucagon,Human Recombinant [GlucaGen] 1 mg IM ASDIRECTED PRN
[2021-08-17] MEDS ORDERED: Metoclopramide 10 MG/2 ML SDV IVPUSH ONE (12:44)
[2021-08-17] MEDS ORDERED: Sodium Chloride 0.9% 1,000 ML IV ONE (12:48)
[2021-08-17] MEDS ORDERED: 50% Dextrose in Water 50 ML Syringe IVPUSH PRN ×2 (12:49→14:08)
[2021-08-17] MEDS ORDERED: Glucagon,Human Recombinant 1 MG Vial IM PRN ×2 (12:49→14:08)
[2021-08-17] MEDS ORDERED: Insulin Regular, Human 100 Units/ML 3 ML Vial SUBCUT ONE ×2 (12:49→14:08)
[2021-08-17 14:02] VITALS: BP 153/87; PULSE 111
== END 2021-08-17 15:02 | disposition home or self-care (01) ==
LOC: JP.ED 11:26
DX: R00.0 Tachycardia, unspecified (principal); E10.65 Type 1 diabetes mellitus with hyperglycemia; R25.1 Tremor, unspecified; K21.9 Gastro-esophageal reflux disease without esophagitis; Z79.899 Other long term (current) drug therapy; Z20.822 Contact with and (suspected) exposure to COVID-19
CPT/HCPCS: 36415; 80048; 82272; 82800; 82947; 84484; 85027; 85379; 87635; 96374; 99284; J2765; J7030; J1815-GY; U0002